=== PATIENT | female | born 1935 | race Caucasian/White ===

== ENCOUNTER 2020-10-11 18:10 | Inpatient (IN) | payer MEDICARE ==
[~2020-10-11] VITALS: Ht 162.6 cm; Wt 81.4 kg
[2020-10-11 21:29] VITALS: BP 117/70
[2020-10-11] MEDS ORDERED: GABA-586 PO (22:47)
[2020-10-11] MEDS ORDERED: TEMA15CA PO (22:47)
[2020-10-11] MEDS: TEMAZEPAM 7.5 MG CAPSULE PO SCH (23:57)
[2020-10-11] MEDS: GABAPENTIN 300 MG CAPSULE. PO SCH (23:57)
[2020-10-12] MEDS ORDERED: ONDA4TAB12 PO (01:26)
[2020-10-12] MEDS ORDERED: ASPI-630 PO (01:26)
[2020-10-12] MEDS ORDERED: ACET325T21 PO (01:26)
[2020-10-12] MEDS ORDERED: METO50TA4 PO (01:26)
[2020-10-12] MEDS ORDERED: POTA20TA4 PO (01:26)
[2020-10-12] MEDS ORDERED: ATOR40TA59 PO (01:26)
[2020-10-12] MEDS ORDERED: SERT50TA PO (01:26)
[2020-10-12] MEDS ORDERED: PANT40TA6 PO (01:26)
[2020-10-12] MEDS ORDERED: FURO40TA4 PO (01:26)
[2020-10-12] MEDS ORDERED: SUCR1TAB PO (01:26)
[2020-10-12] MEDS ORDERED: OLANZapine IM 10 MG VIAL. IM ONE (02:30)
[2020-10-12 06:03] VITALS: BP 93/69
[2020-10-12 06:57] LABS: BACTERIA,URINE 0 /HPF (0-FEW); BILIRUBIN,URINE NEG (NEG); CLARITY,URINE HAZY; COLOR,URINE YELLOW; GLUCOSE,URINE NEG (NEG); HYALINE CASTS, URINE FEW /HPF; NITRITE,URINE NEG (NEG); SQUAMOUS EPITHELIAL CELL,UR FEW /LPF; UROBILINOGEN,URINE 0.2 mg/dL (0.2 mg/dL); WBC,URINE 20-40 /HPF (0-4)
[2020-10-12 07:02] LABS: BASO % 1 % (0-3); EOS # 0.2 x10^3/uL (0.0-0.7); EOS % 2 % (0-3); HEMATOCRIT 40.9 % (36.0-47.0); HEMOGLOBIN 13.5 g/dL (12.0-15.5); LYMPH # 1.6 x10^3/uL (1.0-4.8); LYMPH % 18 % (24-48); MEAN CORPUSCULAR HEMOGLOBIN 32 pg (25-35); MEAN CORPUSCULAR HGB CONC 33 g/dL (31-37); MEAN CORPUSCULAR VOLUME 96 fL (79-100); MONO # 0.9 x10^3/uL (0.0-1.1); MONO % 10 % (0-9); NEUT # 6.3 x10^3uL (1.8-7.7); NEUT % 70 % (31-73); PLATELET COUNT 195 x10^3/uL (140-400); RED BLOOD COUNT 4.28 x10^6/uL (3.50-5.40); RED CELL DISTRIBUTION WIDTH 15.9 % (11.5-14.5); WHITE BLOOD COUNT 9.1 x10^3/uL (4.0-11.0)
[2020-10-12 07:07] LABS: ALBUMIN 3.6 g/dL (3.4-5.0); ALBUMIN/GLOBULIN RATIO 1.1 (1.0-1.7); CALCIUM 9.3 mg/dL (8.5-10.1); CREATININE 1.6 mg/dL (0.6-1.0); GFR 30.6; MAGNESIUM 1.9 mg/dL (1.8-2.4); POTASSIUM 3.4 mmol/L (3.5-5.1); TOTAL BILIRUBIN 1.2 mg/dL (0.2-1.0); TOTAL PROTEIN 6.9 g/dL (6.4-8.2)
[2020-10-12 14:59] LABS: THYROID STIM HORMONE (TSH) 1.17 uIU/mL (0.358-3.740)
[2020-10-12] MEDS ORDERED: ONDANSETRON ODT 4 MG TAB.RAPDIS PO PRN (17:45)
[2020-10-12] MEDS ORDERED: ACETAMINOPHEN 325 MG TABLET PO PRN (17:45)
--- NOTE | 2020-10-12 18:00 | PN ---
DATE: 10/12/2020 SUBJECTIVE: The patient is resting, slightly propped up in bed, in no apparent distress. She apparently has been extremely agitated, restless, wanting to go home. She is in fact refused to eat her breakfast and lunch and apparently threatening to eat her supper also. PHYSICAL EXAMINATION: GENERAL: When I examined her, she looked pale, not jaundiced or cyanosed. No lymphadenopathy, no thyromegaly. No jugular venous distension. No limb edema. VITAL SIGNS: Her heart rate was 105, blood pressure 93/69, temperature 97.5, respiratory rate 20, and oxygen saturation was 94%. HEAD, EYES, EARS, NOSE AND THROAT: Showed normocephalic, atraumatic. NECK: Supple. HEART: Showed normal first and second heart sounds. No gallop or murmur. CHEST: Clear to auscultation. No crepitation or rhonchi. ABDOMEN: Distended, soft, nontender. NEUROLOGIC: She is grossly intact. LABORATORY DATA: Well within normal limit. Her H and H was 13.5 and 40 with normal white cell count and platelets as well as her chemistry. Her coronavirus PCR is still pending at the time of this dictation. IMPRESSION: In summary, this is an 85-year-old female patient who apparently was at [facility] as she had a disagreement with her family and threatened suicidal ideation by taking an overdose of on herself. She is upset with doctors and bandaged her from her room, all this in a background of history of what seemed to be a major depressive disorder. She has multiple medical problems including chronic obstructive pulmonary disease, hypertension, chronic kidney disease, congestive heart failure. She has is known to have chronic atrial fibrillation for which she has a Watchman device. PLAN: My plan is to continue with all her medication and await and if coronavirus test by PCR is negative, she can be transferred to [facility] for inpatient psychiatric stabilization. LIZA ACOSTA MD DR: PACHECO/eliseo JOB#: [id number] / [id number]
--- NOTE | 2020-10-12 18:06 | HP ---
ADMIT DATE: 10/11/2020 HISTORY OF PRESENT ILLNESS: The patient is an 85-year-old female patient who transferred from [facility] to be admitted to [facility] for inpatient psychiatric stabilization. Apparently, the patient has disagreement with the family and threatened suicide by taking pills. Son was able to get most of the pelvis away, but unsure whether she ingested any hydrochlorothiazide, omeprazole. The patient denies complaints. While awaiting for [facility] bed, she was noted to have atrial fibrillation with RVR. IV Cardizem initiated and the patient was admitted to CCU. She apparently is known to have history of chronic atrial fibrillation and has a Watchman device. She was in sinus rhythm and taken off the drip and apparently had become very angry with the doctors and the CCU and managed them out of her room and therefore, it was felt that the patient would benefit from inpatient psychiatric stabilization. When I saw her, she was awake, alert, oriented x 2. She is ambulatory. Her concern is wanting to go home. PAST MEDICAL HISTORY: Significant for chronic diastolic congestive heart failure, acute on chronic kidney injury, anemia, atrial fibrillation, coronary artery disease, chronic back pain, COPD, hyperlipidemia, hypertension, mild recurrent major depression, mitral regurgitation, osteoarthritis, ovarian failure. She has a patent foramen ovale, postherpetic neuralgia, presence of Watchman left atrial appendage closure device and urinary frequency. PAST SURGICAL HISTORY: Significant for multiple echocardiograms and transesophageal echocardiograms, Watchman left atrial appendage occlusion. She has esophagogastroduodenoscopy and flexible sigmoidoscopy. She underwent elective cardioversion for arrhythmias. She underwent PCI with stent deployment to the left anterior descending artery, has had abdominal hysterectomy, bilateral cataract extraction. ALLERGIES: SHE IS ALLERGIC TO PENICILLIN AND SULFADIAZINE. MEDICATIONS: She is normally on following medications: She is on atorvastatin 40 mg once a day, metoprolol succinate 50 mg once a day, aspirin 81 mg once a day, acetaminophen 650 mg every 6 hours, gabapentin 300 mg at bedtime, sertraline 50 mg 1 tablet daily, temazepam 7.5 mg capsule at bedtime, potassium chloride 20 mEq daily, furosemide 40 mg daily, ondansetron 4 mg every 6 hours, sucralfate 1 gram 3 times a day with meals, and Protonix 40 mg twice a day. FAMILY HISTORY: Significant for heart disease in mother, father and sister. Myocardial infarction in the father. SOCIAL HISTORY: She worked in [employer]. Highest education level was high school. She lives with her children. She is a former smoker, quit more than 30 days ago. Does not drink alcohol or use any recreational drugs. PHYSICAL EXAMINATION: GENERAL: On examining her, she looked well and was clearly in no apparent respiratory distress. No pallor, jaundice, cyanosis or thyromegaly. No jugular venous distension. No lower limb edema. VITAL SIGNS: Her heart rate was 115, blood pressure was 117/70, temperature 97.8, respiratory rate 20, and oxygen saturation was 96% on room air. HEAD, EYES, EARS, NOSE AND THROAT: Showed normocephalic, atraumatic. NECK: Supple. HEART: Showed normal first and second heart sounds. No gallop, rub or murmur. CHEST: Clear to auscultation. No crepitation or rhonchi. ABDOMEN: Distended, soft, nontender. No guarding or rigidity. No organomegaly. All hernial orifice intact. Bowel sounds normal. NEUROLOGIC: She was awake, alert, oriented to time, place and person. All her cranial nerves intact. EXTREMITIES: She moves extremities without difficulty. She ambulates without assistance or assistive devices. LABORATORY DATA: Her lab work showed a white cell count of 9100, hemoglobin 13.5, hematocrit 40, MCV 96, and platelet count of 195,000. Her chemistry showed a serum sodium 144, potassium 3.4, chloride 104, bicarbonate 28, BUN 18, creatinine 1.6, estimated GFR was 30 mL per minute. Her glucose 111, calcium was 9.3, magnesium was 1.9. Total bilirubin, AST, ALT, alkaline phosphatase were normal. Total protein 6.9, albumin was 3.6. Serum triglycerides were 181, total cholesterol 183, LDL was 89, VLDL was 36, HDL was 58 and the ratio was 3. Her vitamin B12 was 271 pg/mL. 25-hydroxy vitamin D was 62.7 and her TSH was 1.170. Her D-dimer was 0.9. Urinalysis essentially unremarkable and her antitreponemal and pallidum antibodies were nonreactive. ASSESSMENT AND PLAN: In summary, this is an 85-year-old female patient who basically has disagreement with the family and threatened suicidal ideation by taking an overdose of pills, upset with the doctors and banished them her from her room while at [facility]. She was admitted to [address] [place] [address] to be screened for COVID-19 and once it is negative, the patient will be transferred to [facility] for inpatient psychiatric stabilization. LIZA ACOSTA MD DR: PACHECO/eliseo JOB#: [id number] / [id number]
[2020-10-12 19:05] VITALS: BP 129/80
[2020-10-12] MEDS: TEMAZEPAM 7.5 MG CAPSULE PO SCH (21:47)
[2020-10-12] MEDS: PANTOPRAZOLE 40 MG TABLET. PO SCH (21:47)
[2020-10-12] MEDS: GABAPENTIN 300 MG CAPSULE. PO SCH (21:47)
[2020-10-13 01:07] LABS: HEMOGLOBIN A1C 5.9 % (4.8-5.6)
[2020-10-13 05:40] VITALS: BP 103/66
[2020-10-13 06:39] VITALS: BP 116/84
[2020-10-13] MEDS ORDERED: SUCRALFATE 1 GM TABLET. PO SCH (07:30)
[2020-10-13] MEDS: PANTOPRAZOLE 40 MG TABLET. PO SCH (07:43)
[2020-10-13] MEDS ORDERED: ATORVASTATIN CALCIUM 20 MG TABLET PO SCH (09:00)
[2020-10-13] MEDS ORDERED: POTASSIUM CHLORIDE 20 MEQ TABLET.ER. PO SCH (09:00)
[2020-10-13] MEDS ORDERED: METOPROLOL SUCC 24HR ER 50 MG TAB.ER.24H. PO SCH (09:00)
[2020-10-13] MEDS ORDERED: ASPIRIN CHEWABLE 81 MG TABLET. PO SCH (09:00)
[2020-10-13] MEDS ORDERED: FUROSEMIDE 40 MG TABLET PO SCH (09:00)
[2020-10-13] MEDS ORDERED: SERTRALINE 50 MG TABLET. PO SCH (09:00)
[2020-10-13 11:19] VITALS: BP 118/80
--- NOTE | 2020-10-13 13:13 | DS ---
DATE OF DISCHARGE: 10/13/2020 ATTENDING PHYSICIAN: Dr. Jamison FINAL DISCHARGE DIAGNOSES: 1. Behavioral issues and suicidal ideation. 2. Paroxysmal atrial fibrillation. 3. Previous Watchman device. 4. Chronic obstructive pulmonary disease, mild. 5. Essential hypertension. 6. Mild dementia. 7. Hyperlipidemia. 8. Chronic low back pain. 9. Patent foramen ovale. 10. Postherpetic neuralgia. HISTORY AND PHYSICAL: This is an 85-year-old female who has been living at home. She had gotten disgruntled and threatened suicide ideation without any active plans. She was sent here from [facility]. PHYSICAL EXAMINATION: Please see the dictated note. PERTINENT LABORATORY AND X-RAY STUDIES: Admission hemoglobin was 13.5 g/dL, white count of 9100. Sodium 144, potassium 3.4 mEq. Hemoglobin A1c 5.9, creatinine 1.6 mg percent. Serology: The coronavirus is pending. She has no symptoms. COURSE IN THE HOSPITAL: She was admitted. Home meds were restarted. Diet was advanced. When the coronavirus swab was available, she was transferred. Discharged to [facility] at the screening process. Her home meds include the following: They will continue her Tylenol, aspirin, Lasix, Neurontin, metoprolol, ondansetron, Protonix, potassium, Zoloft, Carafate, and Restoril dose unchanged. She is a full code. She was discharged then from our smalls to the [facility] in stable condition with explicit instructions and followup care. JANKI NEIL MD DR: COURTNEY/eliseo JOB#: [id number] / [id number] [address]
[2020-10-13 15:17] VITALS: BP 137/85
[2020-10-13] MEDS ORDERED: METO-239 PO (18:14)
[2020-10-13] MEDS ORDERED: TEMA7.5C PO (18:14)
--- NOTE | 2020-10-14 07:00 | EKG ---
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
== END 2020-10-13 15:31 | DRG 641 ==
LOC: 1 SOUTH 18:10
PROVIDERS: ADMIT Internal Medicine; ATTEND Internal Medicine
DX: E87.6 Hypokalemia (principal); R45.851 Suicidal ideations; I50.32 Chronic diastolic (congestive) heart failure; B02.29 Other postherpetic nervous system involvement; F03.91 Unspecified dementia, unspecified severity, with behavioral disturbance; I13.0 Hypertensive heart and chronic kidney disease with heart failure and stage 1 through stage 4 chronic kidney disease, or unspecified chronic kidney disease; I48.20 Chronic atrial fibrillation, unspecified; Q21.1 Atrial septal defect; E78.5 Hyperlipidemia, unspecified; G89.29 Other chronic pain; I25.10 Atherosclerotic heart disease of native coronary artery without angina pectoris; I34.0 Nonrheumatic mitral (valve) insufficiency; I48.0 Paroxysmal atrial fibrillation; J44.9 Chronic obstructive pulmonary disease, unspecified; N18.9 Chronic kidney disease, unspecified; Z82.49 Family history of ischemic heart disease and other diseases of the circulatory system; Z87.891 Personal history of nicotine dependence; Z90.710 Acquired absence of both cervix and uterus; Z95.5 Presence of coronary angioplasty implant and graft; Z95.818 Presence of other cardiac implants and grafts; Z98.41 Cataract extraction status, right eye; Z98.42 Cataract extraction status, left eye; Z88.0 Allergy status to penicillin; Z88.8 Allergy status to other drugs, medicaments and biological substances; Z20.822 Contact with and (suspected) exposure to COVID-19
CPT/HCPCS: 36415; 80053; 80061; 81001; 82306; 82607; 83036; 83735; 84443; 85025; 85379; 86592; 87086; 93005; J3490; U0003

== ENCOUNTER 2020-10-13 15:30 | Inpatient (IN) | payer MEDICARE ==
[~2020-10-13] VITALS: Ht 144.8 cm; Wt 82.5 kg
[~2020-10-13 15:30] MED LIST: ACET325T21 PO; ASPI-630 PO; ATOR40TA59 PO; FURO40TA4 PO; GABA-586 PO; METO50TA4 PO; ONDA4TAB12 PO; PANT40TA6 PO; POTA20TA4 PO; SERT50TA PO; SUCR1TAB PO; TEMA15CA PO
[2020-10-13 17:12] VITALS: BP 137/81
[2020-10-13] MEDS ORDERED: METHYL SALICYLATE/MENTHOL TOPICAL OINTMENT 57GM TUBE. TP PRN (17:45)
[2020-10-13] MEDS ORDERED: MAGNESIUM HYDROXIDE 2,400 MG/30 ML ORAL.SUSP. PO PRN (17:45)
[2020-10-13] MEDS ORDERED: MAG HYDROX/AL HYDROX/SIMETH 30 ML ORAL.SUSP PO PRN (17:45)
[2020-10-13] MEDS ORDERED: ACETAMINOPHEN 325 MG TABLET PO PRN (18:00)
[2020-10-13] MEDS ORDERED: ONDANSETRON ODT 4 MG TAB.RAPDIS PO PRN (18:00)
[2020-10-13] MEDS ORDERED: TEMA7.5C PO (18:14)
[2020-10-13] MEDS ORDERED: METO-239 PO (18:14)
[2020-10-13] MEDS: GABAPENTIN 300 MG CAPSULE. PO SCH (19:40)
[2020-10-13] MEDS: TEMAZEPAM 7.5 MG CAPSULE PO SCH (19:40)
[2020-10-13] MEDS: PANTOPRAZOLE 40 MG TABLET. PO SCH (19:41)
--- NOTE | 2020-10-13 21:09 | PDOC ---
Exam Note: Karl Note: Please also refer to the separate dictated note~for this date of service dictated separately.~Patient seen individually. Discussed the patient with Nursing staff reviewed the chart.~Reviewed interim history and current functioning. Reviewed vital signs,~Labs/ Radiology~and current medications noted below. Continue current treatment with the changes noted in the dictated addendum note Assessment: Vital Signs/I&O: Vital Signs Date Time Temp Pulse Resp B/P (MAP) Pulse Ox O2 Delivery O2 Flow Rate FiO2 10/13/20 17:12 98.4 89 18 137/81 (99) 93 Current Medications: Meds: Current Medications Medications (Trade) Dose Ordered Sig/Estefany Route PRN Reason Start Time Stop Time Status Last Admin Dose Admin Gabapentin (Neurontin) 300 mg HS PO 10/13/20 21:00 10/13/20 19:40 Pantoprazole Sodium (Protonix) 40 mg BID PO 10/13/20 21:00 10/13/20 19:41 Temazepam (Restoril) 7.5 mg QHS PO 10/13/20 21:00 10/13/20 19:40 I have reviewed the current psychotropics carefully including drug interactions. Risk benefit ratio favors no change other than as noted in my dictated progress note. Diagnosis: Problems: (1) Major depressive disorder, recurrent episode SAYRA SALGADO MD Oct 13, 2020 21:09
[2020-10-14 05:42] VITALS: BP 145/72
[2020-10-14 05:56] VITALS: BP_SYST 105; BP_SYST 109; BP_DIAS 62; BP_DIAS 64
[2020-10-14 06:55] LABS: ALBUMIN 3.6 g/dL (3.4-5.0); ALBUMIN/GLOBULIN RATIO 1.1 (1.0-1.7); CALCIUM 8.9 mg/dL (8.5-10.1); CREATININE 1.4 mg/dL (0.6-1.0); GFR 35.7; POTASSIUM 3.4 mmol/L (3.5-5.1)
[2020-10-14 07:27] LABS: BASO # 0.1 x10^3/uL (0.0-0.2); BASO % 1 % (0-3); EOS # 0.3 x10^3/uL (0.0-0.7); EOS % 4 % (0-3); HEMATOCRIT 43.9 % (36.0-47.0); HEMOGLOBIN 14.3 g/dL (12.0-15.5); LYMPH # 2.5 x10^3/uL (1.0-4.8); LYMPH % 35 % (24-48); MEAN CORPUSCULAR HEMOGLOBIN 31 pg (25-35); MEAN CORPUSCULAR HGB CONC 33 g/dL (31-37); MEAN CORPUSCULAR VOLUME 96 fL (79-100); MONO # 0.8 x10^3/uL (0.0-1.1); MONO % 11 % (0-9); NEUT # 3.4 x10^3uL (1.8-7.7); NEUT % 49 % (31-73); PLATELET COUNT 229 x10^3/uL (140-400); RED BLOOD COUNT 4.58 x10^6/uL (3.50-5.40); WHITE BLOOD COUNT 6.9 x10^3/uL (4.0-11.0)
[2020-10-14] MEDS: SUCRALFATE 1 GM TABLET. PO SCH ×3 (08:12→17:29)
[2020-10-14] MEDS: ASPIRIN CHEWABLE 81 MG TABLET. PO SCH (08:12)
[2020-10-14] MEDS: FUROSEMIDE 40 MG TABLET PO SCH (08:12)
[2020-10-14] MEDS: METOPROLOL SUCC 24HR ER 25 MG TAB.ER.24H. PO SCH (08:13)
[2020-10-14] MEDS: PANTOPRAZOLE 40 MG TABLET. PO SCH ×2 (08:13→19:29)
[2020-10-14] MEDS: ATORVASTATIN CALCIUM 20 MG TABLET PO SCH (08:14)
[2020-10-14] MEDS: POTASSIUM CHLORIDE 20 MEQ TABLET.ER. PO SCH (08:14)
[2020-10-14] MEDS ORDERED: SERTRALINE 50 MG TABLET. PO SCH (09:00)
[2020-10-14 17:22] VITALS: BP 149/83
[2020-10-14] MEDS: TEMAZEPAM 7.5 MG CAPSULE PO SCH (19:29)
[2020-10-14] MEDS: GABAPENTIN 300 MG CAPSULE. PO SCH (19:29)
--- NOTE | 2020-10-14 20:56 | PDOC ---
Exam Note: Karl Note: Please also refer to the separate dictated note~for this date of service dictated separately.~Patient seen individually. Discussed the patient with Nursing staff reviewed the chart.~Reviewed interim history and current functioning. Reviewed vital signs,~Labs/ Radiology~and current medications noted below. Continue current treatment with the changes noted in the dictated addendum note Assessment: Vital Signs/I&O: Vital Signs Date Time Temp Pulse Resp B/P (MAP) Pulse Ox O2 Delivery O2 Flow Rate FiO2 10/14/20 17:22 97.5 92 18 149/83 (105) 95 I & O 10/13/20 10/13/20 10/14/20 15:00 23:00 07:00 Intake Total 600 ml Balance 600 ml Labs: Laboratory Tests Test 10/14/20 06:11 White Blood Count 6.9 x10^3/uL (4.0-11.0) Red Blood Count 4.58 x10^6/uL (3.50-5.40) Hemoglobin 14.3 g/dL (12.0-15.5) Hematocrit 43.9 % (36.0-47.0) Mean Corpuscular Volume 96 fL (79-100) Mean Corpuscular Hemoglobin 31 pg (25-35) Mean Corpuscular Hemoglobin Concent 33 g/dL (31-37) Red Cell Distribution Width 16.0 % (11.5-14.5) H Platelet Count 229 x10^3/uL (140-400) Neutrophils (%) (Auto) 49 % (31-73) Lymphocytes (%) (Auto) 35 % (24-48) Monocytes (%) (Auto) 11 % (0-9) H Eosinophils (%) (Auto) 4 % (0-3) H Basophils (%) (Auto) 1 % (0-3) Neutrophils # (Auto) 3.4 x10^3uL (1.8-7.7) Lymphocytes # (Auto) 2.5 x10^3/uL (1.0-4.8) Monocytes # (Auto) 0.8 x10^3/uL (0.0-1.1) Eosinophils # (Auto) 0.3 x10^3/uL (0.0-0.7) Basophils # (Auto) 0.1 x10^3/uL (0.0-0.2) Sodium Level 146 mmol/L (136-145) H Potassium Level 3.4 mmol/L (3.5-5.1) L Chloride Level 105 mmol/L (98-107) Carbon Dioxide Level 29 mmol/L (21-32) Anion Gap 12 (6-14) Blood Urea Nitrogen 19 mg/dL (7-20) Creatinine 1.4 mg/dL (0.6-1.0) H Estimated GFR (Cockcroft-Gault) 35.7 BUN/Creatinine Ratio 14 (6-20) Glucose Level 107 mg/dL (70-99) H Calcium Level 8.9 mg/dL (8.5-10.1) Magnesium Level 1.9 mg/dL (1.8-2.4) Total Bilirubin 1.0 mg/dL (0.2-1.0) Aspartate Amino Transferase (AST) 17 U/L (15-37) Alanine Aminotransferase (ALT) 19 U/L (14-59) Alkaline Phosphatase 112 U/L (46-116) Total Protein 7.0 g/dL (6.4-8.2) Albumin 3.6 g/dL (3.4-5.0) Albumin/Globulin Ratio 1.1 (1.0-1.7) Current Medications: Meds: Current Medications Medications (Trade) Dose Ordered Sig/Estefany Route PRN Reason Start Time Stop Time Status Last Admin Dose Admin Aspirin (Aspirin Chewable) 81 mg DAILY PO 10/14/20 09:00 10/14/20 08:12 Furosemide (Lasix) 40 mg DAILY PO 10/14/20 09:00 10/14/20 08:12 Gabapentin (Neurontin) 300 mg HS PO 10/13/20 21:00 10/14/20 19:29 Metoprolol Succinate (Toprol Xl) 75 mg DAILY PO 10/14/20 09:00 10/14/20 08:13 Pantoprazole Sodium (Protonix) 40 mg BID PO 10/13/20 21:00 10/14/20 19:29 Potassium Chloride (Klor-Con) 20 meq DAILY PO 10/14/20 09:00 10/14/20 08:14 Sertraline HCl (Zoloft) 50 mg DAILY PO 10/14/20 09:00 10/14/20 10:47 DC 10/14/20 08:14 Sucralfate (Carafate) 1 gm TIDBFRMEAL PO 10/14/20 07:30 10/14/20 17:29 Temazepam (Restoril) 7.5 mg QHS PO 10/13/20 21:00 10/14/20 19:29 Atorvastatin Calcium (Lipitor) 40 mg DAILY PO 10/14/20 09:00 10/14/20 08:14 I have reviewed the current psychotropics carefully including drug interactions. Risk benefit ratio favors no change other than as noted in my dictated progress note. Diagnosis: Problems: (1) Major depressive disorder, recurrent episode SAYRA SALGADO MD Oct 14, 2020 20:56
--- NOTE | 2020-10-14 22:07 | HP ---
ADMIT DATE: 10/13/2020 PSYCHIATRIC ADMISSION HISTORY/EVALUATION This late entry date of service 10/13/2020 covers elements not covered in my initial note. SUBJECTIVE: I met with the patient evening of 10/13/2020. Previously discussed with social service and intake staff members and nursing staff on . I had been called from the medical/surgical floor on when the patient was admitted there and attempted to elope around 1:30 in the morning. We had initiated Zyprexa Zydis at that time p.r.n. and she was more manageable. IDENTIFYING DATA: The patient is an 85-year-old female referred from [facility] where she presented from home as an emergency, status post threats to overdose and commit suicide because she was having disagreements with her daughter. She was extremely erratic in her mood, depressed, anxious, paranoid, had failed outpatient psychiatric interventions. While at [facility], she continued to be paranoid, had "banished her doctors from her room." The patient's behaviors have been deemed dangerous, unmanageable. She has failed outpatient psychiatric interventions resulting in this referral. CHIEF COMPLAINT: "I did not do that. 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 She lives with her son in [place], [place] and her daughter is her power of community coordinator. She becomes upset at the family, threatened to overdose on medications; had been depressed, anxious and failed outpatient psychiatric interventions. No clear history of bipolar disorder. PAST PSYCHIATRIC HISTORY: As above. MEDICAL HISTORY: Positive for congestive heart failure, acute on chronic kidney injury, anemia, atrial fibrillation, history of RVR, coronary artery disease, chronic back pain, COPD, GI bleed, hiatal hernia, hyperlipidemia, hypertension, mitral regurgitation, osteoarthritis, edema, patent foramen ovale, postherpetic neuralgia, syncope, diverticulosis. ACCU-CHEKS: Negative. DIET: Cardiac. Takes medications whole, ambulates independently. CURRENT PSYCHOTROPICS: Zoloft 75 mg a day, Restoril 7.5 mg at bedtime p.r.n., gabapentin 300 mg at bedtime. FAMILY HISTORY: Noncontributory. SOCIAL HISTORY: No history of alcohol, drug abuse, physical, sexual or elder abuse. She is not known to be a perpetrator. REACTION TO HOSPITALIZATION: The patient is not fully accepting it. ASSETS: Supportive family, reasonably cognitively intact. REVIEW OF SYSTEMS: No CV, , pulmonary, eye, ENT system symptoms on review. MENTAL STATUS EXAMINATION: The patient was seen individually evening of 10/13/2020. She is oriented to herself and situation. Speech is coherent, rapid. Abstraction fair, computation impaired, language function intact, attention span short. Mood and affect, anxious, labile. She denied active suicidal ideation. LABORATORY DATA: Reviewed. IMPRESSION: Major depressive disorder, recurrent; anxiety disorder, unspecified; impulse control disorder, unspecified. Rest diagnoses as above. PLAN: Admit to Geropsychiatry Unit at [facility]. I will see the patient daily individually from a psychiatric standpoint. Medical followup per Dr. Jamison/Dr. Obrien. We will consider increasing the Zoloft as an antidepressant using low dose Seroquel to augment Zoloft as a mood stabilizer. We will make further adjustments post baseline assessment. ESTIMATED LENGTH OF STAY: 10-12 days. DISPOSITION: Plans back home with outpatient followup at the [facility]. SAYRA SALGADO MD DR: AMISHA/eliseo JOB#: [id number] / [id number]
--- NOTE | 2020-10-14 22:09 | PN ---
DATE: 10/14/2020 PSYCHIATRIC PROGRESS NOTE This note covers the elements not covered in my initial note of 10/14/2020. SUBJECTIVE: The patient was staffed at a treatment team meeting with the entire team with Larissa Funez, outreach and education social worker, Mary, outreach and education social worker, Marina and __, activity therapy and NELLIE Duarte. The patient has been pleasant, compliant, remains anxious. I met with her in the evening. She is obsessed about discharge and we had a lengthy discussion about the symptoms prompting admission, all of which she denied. REVIEW OF SYSTEMS: No CV, , pulmonary, eye, ENT system symptoms on review. MENTAL STATUS EXAM: Reasonably oriented. Speech is coherent, rapid at times. Abstraction fair, computation impaired, language function intact. Mood and affect remains depressed. LABORATORY DATA: Reviewed. IMPRESSION: Major depressive disorder, rule out psychotic features; anxiety disorder, unspecified; impulse control disorder, unspecified. PLAN: Continue current psychotropics. Increase Zoloft from 50 mg a day to 75 mg a day. Maintain Restoril and gabapentin. Adjust further as clinically indicated. Consider Seroquel for augmentation. SAYRA SALGADO MD DR: AMISHA/eliseo JOB#: [id number] / [id number]
[2020-10-15 05:51] VITALS: BP 124/81
[2020-10-15] MEDS: PANTOPRAZOLE 40 MG TABLET. PO SCH ×2 (08:30→20:54)
[2020-10-15] MEDS: ASPIRIN CHEWABLE 81 MG TABLET. PO SCH (08:31)
[2020-10-15] MEDS: ATORVASTATIN CALCIUM 20 MG TABLET PO SCH (08:31)
[2020-10-15] MEDS: SERTRALINE 50 MG TABLET. PO SCH (08:31)
[2020-10-15] MEDS: METOPROLOL SUCC 24HR ER 25 MG TAB.ER.24H. PO SCH (08:31)
[2020-10-15] MEDS: SUCRALFATE 1 GM TABLET. PO SCH ×3 (08:32→17:16)
[2020-10-15] MEDS: POTASSIUM CHLORIDE 20 MEQ TABLET.ER. PO SCH (08:32)
[2020-10-15] MEDS: FUROSEMIDE 40 MG TABLET PO SCH (08:32)
[2020-10-15 16:02] VITALS: BP 109/73
--- NOTE | 2020-10-15 20:42 | PDOC ---
Exam Note: Karl Note: Please also refer to the separate dictated note~for this date of service dictated separately.~Patient seen individually. Discussed the patient with Nursing staff reviewed the chart.~Reviewed interim history and current functioning. Reviewed vital signs,~Labs/ Radiology~and current medications noted below. Continue current treatment with the changes noted in the dictated addendum note Assessment: Vital Signs/I&O: Vital Signs Date Time Temp Pulse Resp B/P (MAP) Pulse Ox O2 Delivery O2 Flow Rate FiO2 10/15/20 16:02 97.5 94 18 109/73 (85) 98 Room Air I & O 10/14/20 10/14/20 10/15/20 15:00 23:00 07:00 Intake Total 400 ml 320 ml Balance 400 ml 320 ml Current Medications: Meds: Current Medications Medications (Trade) Dose Ordered Sig/Estefany Route PRN Reason Start Time Stop Time Status Last Admin Dose Admin Sertraline HCl (Zoloft) 75 mg DAILY PO 10/15/20 09:00 10/15/20 08:31 I have reviewed the current psychotropics carefully including drug interactions. Risk benefit ratio favors no change other than as noted in my dictated progress note. Diagnosis: Problems: (1) Major depressive disorder, recurrent episode (2) Anxiety disorder, unspecified (3) Impulse control disorder, unspecified SAYRA SALGADO MD Oct 15, 2020 20:42
[2020-10-15] MEDS: TEMAZEPAM 7.5 MG CAPSULE PO SCH (20:52)
[2020-10-15] MEDS: GABAPENTIN 300 MG CAPSULE. PO SCH (20:55)
[2020-10-16 06:15] VITALS: BP 113/81
[2020-10-16] MEDS: ASPIRIN CHEWABLE 81 MG TABLET. PO SCH (08:31)
[2020-10-16] MEDS: METOPROLOL SUCC 24HR ER 25 MG TAB.ER.24H. PO SCH (08:31)
[2020-10-16] MEDS: SERTRALINE 50 MG TABLET. PO SCH (08:32)
[2020-10-16] MEDS: POTASSIUM CHLORIDE 20 MEQ TABLET.ER. PO SCH (08:32)
[2020-10-16] MEDS: ATORVASTATIN CALCIUM 20 MG TABLET PO SCH (08:32)
[2020-10-16] MEDS: ACETAMINOPHEN 325 MG TABLET PO PRN (08:32)
[2020-10-16] MEDS: PANTOPRAZOLE 40 MG TABLET. PO SCH ×2 (08:32→19:25)
[2020-10-16] MEDS: SUCRALFATE 1 GM TABLET. PO SCH ×3 (08:32→17:00)
[2020-10-16] MEDS: FUROSEMIDE 40 MG TABLET PO SCH (08:33)
[2020-10-16 16:10] VITALS: BP 121/75
[2020-10-16] MEDS: TEMAZEPAM 7.5 MG CAPSULE PO SCH (19:25)
[2020-10-16] MEDS: GABAPENTIN 300 MG CAPSULE. PO SCH (19:25)
--- NOTE | 2020-10-16 21:22 | PDOC ---
Exam Note: Karl Note: Please also refer to the separate dictated note~for this date of service dictated separately.~Patient seen individually. Discussed the patient with Nursing staff reviewed the chart.~Reviewed interim history and current functioning. Reviewed vital signs,~Labs/ Radiology~and current medications noted below. Continue current treatment with the changes noted in the dictated addendum note Assessment: Vital Signs/I&O: Vital Signs Date Time Temp Pulse Resp B/P (MAP) Pulse Ox O2 Delivery O2 Flow Rate FiO2 10/16/20 16:10 97.2 72 20 121/75 (90) 97 10/16/20 06:15 Room Air I & O 10/15/20 10/15/20 10/16/20 15:00 23:00 07:00 Intake Total 600 ml 600 ml Balance 600 ml 600 ml Current Medications: Meds: Current Medications Medications (Trade) Dose Ordered Sig/Estefany Route PRN Reason Start Time Stop Time Status Last Admin Dose Admin Acetaminophen (Tylenol) 650 mg PRN Q6HRS PRN PO MILD PAIN / TEMP > 100.3'F 10/13/20 17:45 10/16/20 08:32 Multi-Ingredient Ointment (Analgesic [place]) 1 lili PRN QID PRN TP MUSCLE PAIN 10/13/20 17:45 Al Hydroxide/Mg Hydroxide (Mylanta Plus Xs) 15 ml PRN AFTMEALHC PRN PO DYSPEPSIA 10/13/20 17:45 Magnesium Hydroxide (Milk Of Magnesia) 2,400 mg PRN QHS PRN PO CONSTIPATION 10/13/20 17:45 Acetaminophen (Tylenol) 650 mg PRN Q6HRS PRN PO pain or fever 10/13/20 18:00 UNV Aspirin (Aspirin Chewable) 81 mg DAILY PO 10/14/20 09:00 10/16/20 08:31 Furosemide (Lasix) 40 mg DAILY PO 10/14/20 09:00 10/16/20 08:33 Gabapentin (Neurontin) 300 mg HS PO 10/13/20 21:00 10/16/20 19:25 Metoprolol Succinate (Toprol Xl) 75 mg DAILY PO 10/14/20 09:00 10/16/20 08:31 Ondansetron HCl (Zofran Odt) 4 mg PRN Q6HRS PRN PO NAUSEA/VOMITING 10/13/20 18:00 Pantoprazole Sodium (Protonix) 40 mg BID PO 10/13/20 21:00 10/16/20 19:25 Potassium Chloride (Klor-Con) 20 meq DAILY PO 10/14/20 09:00 10/16/20 08:32 Sertraline HCl (Zoloft) 50 mg DAILY PO 10/14/20 09:00 10/14/20 10:47 DC 10/14/20 08:14 Sucralfate (Carafate) 1 gm TIDBFRMEAL PO 10/14/20 07:30 10/16/20 17:00 Temazepam (Restoril) 7.5 mg QHS PO 10/13/20 21:00 10/16/20 19:25 Atorvastatin Calcium (Lipitor) 40 mg DAILY PO 10/14/20 09:00 10/16/20 08:32 Sertraline HCl (Zoloft) 75 mg DAILY PO 10/15/20 09:00 10/16/20 08:32 I have reviewed the current psychotropics carefully including drug interactions. Risk benefit ratio favors no change other than as noted in my dictated progress note. Diagnosis: Problems: (1) Major depressive disorder, recurrent episode (2) Impulse control disorder, unspecified (3) Anxiety disorder, unspecified SAYRA SALGADO MD Oct 16, 2020 21:21
[2020-10-17 06:20] VITALS: BP 122/75
--- NOTE | 2020-10-17 07:27 | PDOC ---
Exam Note: Karl Note: This note is a late entry for 10/15/2020 covers elements not covered in my initial note. Subjective: The patient was seen individually in the evening of 10/15/2020 with Gerald BALLARD, discussed and reviewed the chart. She slept 7 hours previous night. She has had no p.r.n.s. for behaviors. She has been obsessed about discharge. She is anxious, hyperverbal. Review of Systems: No CV, , eye, ENT system symptoms on review. Mental Status Exam: The patient is oriented to herself and situation. Speech is coherent, rapid at times. Abstraction is fair. Computation is somewhat impaired. Language function is intact. Mood and affect quite labile. No suicidal or homicidal ideation. Laboratory Data: Reviewed. 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 Anxiety disorder unspecified. Impulse control disorder unspecified. Plan: Continue current psychotropics. Adjust Zoloft as clinically indicated. Consider augmentation with Seroquel as a mood stabilizer if needed. Assessment: Vital Signs/I&O: Vital Signs Date Time Temp Pulse Resp B/P (MAP) Pulse Ox O2 Delivery O2 Flow Rate FiO2 10/17/20 06:20 97.9 69 16 122/75 (91) 98 Room Air I & O 10/16/20 10/16/20 10/17/20 15:00 23:00 07:00 Intake Total 840 ml 600 ml Balance 840 ml 600 ml Current Medications: Meds: Current Medications Medications (Trade) Dose Ordered Sig/Estefany Route PRN Reason Start Time Stop Time Status Last Admin Dose Admin Acetaminophen (Tylenol) 650 mg PRN Q6HRS PRN PO MILD PAIN / TEMP > 100.3'F 10/13/20 17:45 10/16/20 08:32 Multi-Ingredient Ointment (Analgesic [place]) 1 lili PRN QID PRN TP MUSCLE PAIN 10/13/20 17:45 Al Hydroxide/Mg Hydroxide (Mylanta Plus Xs) 15 ml PRN AFTMEALHC PRN PO DYSPEPSIA 10/13/20 17:45 Magnesium Hydroxide (Milk Of Magnesia) 2,400 mg PRN QHS PRN PO CONSTIPATION 10/13/20 17:45 Acetaminophen (Tylenol) 650 mg PRN Q6HRS PRN PO pain or fever 10/13/20 18:00 UNV Aspirin (Aspirin Chewable) 81 mg DAILY PO 10/14/20 09:00 10/16/20 08:31 Furosemide (Lasix) 40 mg DAILY PO 10/14/20 09:00 10/16/20 08:33 Gabapentin (Neurontin) 300 mg HS PO 10/13/20 21:00 10/16/20 19:25 Metoprolol Succinate (Toprol Xl) 75 mg DAILY PO 10/14/20 09:00 10/16/20 08:31 Ondansetron HCl (Zofran Odt) 4 mg PRN Q6HRS PRN PO NAUSEA/VOMITING 10/13/20 18:00 Pantoprazole Sodium (Protonix) 40 mg BID PO 10/13/20 21:00 10/16/20 19:25 Potassium Chloride (Klor-Con) 20 meq DAILY PO 10/14/20 09:00 10/16/20 08:32 Sertraline HCl (Zoloft) 50 mg DAILY PO 10/14/20 09:00 10/14/20 10:47 DC 10/14/20 08:14 Sucralfate (Carafate) 1 gm TIDBFRMEAL PO 10/14/20 07:30 10/16/20 17:00 Temazepam (Restoril) 7.5 mg QHS PO 10/13/20 21:00 10/16/20 19:25 Atorvastatin Calcium (Lipitor) 40 mg DAILY PO 10/14/20 09:00 10/16/20 08:32 Sertraline HCl (Zoloft) 75 mg DAILY PO 10/15/20 09:00 10/16/20 08:32 I have reviewed the current psychotropics carefully including drug interactions. Risk benefit ratio favors no change other than as noted in my dictated progress note. Diagnosis: Problems: (1) Major depressive disorder, recurrent episode (2) Impulse control disorder, unspecified (3) Anxiety disorder, unspecified SAYRA ASLGADO MD Oct 17, 2020 07:27
--- NOTE | 2020-10-17 07:51 | PDOC ---
Exam Note: Karl Note: This note is a late entry for 10/16/2020 covers elements not covered in my initial note. Subjective: The patient was seen individually in the evening of 10/16/2020 with Gallito BALLARD, discussed and reviewed the chart. She slept 7-3/4 hours previous night. She has been somewhat forgetful. Denies suicidal ideation, obsessed about wanting her fan switched off in the room. Nursing staff are addressing this. She is overall doing better. Review of Systems: No CV, , eye, ENT system symptoms on review. Mental Status Exam: The patient is oriented to herself and situation. She was slightly less hyperverbal today as I met with her, trying to convince me that she should be discharged this evening. I addressed this with her at length. Abstraction is fair. Computation is somewhat impaired. Language function is intact. Mood and affect quite labile. No suicidal or homicidal ideation. Laboratory Data: Reviewed. 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 Anxiety disorder unspecified. Impulse control disorder unspecified. Plan: Continue current psychotropics. Assessment: Vital Signs/I&O: Vital Signs Date Time Temp Pulse Resp B/P (MAP) Pulse Ox O2 Delivery O2 Flow Rate FiO2 10/17/20 06:20 97.9 69 16 122/75 (91) 98 Room Air I & O 10/16/20 10/16/20 10/17/20 15:00 23:00 07:00 Intake Total 840 ml 600 ml Balance 840 ml 600 ml Current Medications: Meds: Current Medications Medications (Trade) Dose Ordered Sig/Estefany Route PRN Reason Start Time Stop Time Status Last Admin Dose Admin Acetaminophen (Tylenol) 650 mg PRN Q6HRS PRN PO MILD PAIN / TEMP > 100.3'F 10/13/20 17:45 10/16/20 08:32 Multi-Ingredient Ointment (Analgesic [place]) 1 lili PRN QID PRN TP MUSCLE PAIN 10/13/20 17:45 Al Hydroxide/Mg Hydroxide (Mylanta Plus Xs) 15 ml PRN AFTMEALHC PRN PO DYSPEPSIA 10/13/20 17:45 Magnesium Hydroxide (Milk Of Magnesia) 2,400 mg PRN QHS PRN PO CONSTIPATION 10/13/20 17:45 Acetaminophen (Tylenol) 650 mg PRN Q6HRS PRN PO pain or fever 10/13/20 18:00 UNV Aspirin (Aspirin Chewable) 81 mg DAILY PO 10/14/20 09:00 10/16/20 08:31 Furosemide (Lasix) 40 mg DAILY PO 10/14/20 09:00 10/16/20 08:33 Gabapentin (Neurontin) 300 mg HS PO 10/13/20 21:00 10/16/20 19:25 Metoprolol Succinate (Toprol Xl) 75 mg DAILY PO 10/14/20 09:00 10/16/20 08:31 Ondansetron HCl (Zofran Odt) 4 mg PRN Q6HRS PRN PO NAUSEA/VOMITING 10/13/20 18:00 Pantoprazole Sodium (Protonix) 40 mg BID PO 10/13/20 21:00 10/16/20 19:25 Potassium Chloride (Klor-Con) 20 meq DAILY PO 10/14/20 09:00 10/16/20 08:32 Sertraline HCl (Zoloft) 50 mg DAILY PO 10/14/20 09:00 10/14/20 10:47 DC 10/14/20 08:14 Sucralfate (Carafate) 1 gm TIDBFRMEAL PO 10/14/20 07:30 10/16/20 17:00 Temazepam (Restoril) 7.5 mg QHS PO 10/13/20 21:00 10/16/20 19:25 Atorvastatin Calcium (Lipitor) 40 mg DAILY PO 10/14/20 09:00 10/16/20 08:32 Sertraline HCl (Zoloft) 75 mg DAILY PO 10/15/20 09:00 10/16/20 08:32 I have reviewed the current psychotropics carefully including drug interactions. Risk benefit ratio favors no change other than as noted in my dictated progress note. Diagnosis: Problems: (1) Major depressive disorder, recurrent episode (2) Impulse control disorder, unspecified (3) Anxiety disorder, unspecified SAYRA SALGADO MD Oct 17, 2020 07:51
[2020-10-17] MEDS: FUROSEMIDE 40 MG TABLET PO SCH (08:04)
[2020-10-17] MEDS: SUCRALFATE 1 GM TABLET. PO SCH ×3 (08:04→16:49)
[2020-10-17] MEDS: ASPIRIN CHEWABLE 81 MG TABLET. PO SCH (08:04)
[2020-10-17] MEDS: ATORVASTATIN CALCIUM 20 MG TABLET PO SCH (08:05)
[2020-10-17] MEDS: PANTOPRAZOLE 40 MG TABLET. PO SCH ×2 (08:05→19:19)
[2020-10-17] MEDS: POTASSIUM CHLORIDE 20 MEQ TABLET.ER. PO SCH (08:05)
[2020-10-17] MEDS: METOPROLOL SUCC 24HR ER 25 MG TAB.ER.24H. PO SCH (08:05)
[2020-10-17] MEDS: SERTRALINE 50 MG TABLET. PO SCH (08:05)
[2020-10-17 16:01] VITALS: BP 133/84
[2020-10-17] MEDS: TEMAZEPAM 7.5 MG CAPSULE PO SCH (19:20)
[2020-10-17] MEDS: GABAPENTIN 300 MG CAPSULE. PO SCH (19:20)
--- NOTE | 2020-10-17 20:54 | PDOC ---
Exam Note: Karl Note: Please also refer to the separate dictated note~for this date of service dictated separately.~Patient seen individually. Discussed the patient with Nursing staff reviewed the chart.~Reviewed interim history and current functioning. Reviewed vital signs,~Labs/ Radiology~and current medications noted below. Continue current treatment with the changes noted in the dictated addendum note Assessment: Vital Signs/I&O: Vital Signs Date Time Temp Pulse Resp B/P (MAP) Pulse Ox O2 Delivery O2 Flow Rate FiO2 10/17/20 16:01 97.9 82 20 133/84 (100) 97 Room Air I & O 10/16/20 10/16/20 10/17/20 14:59 22:59 06:59 Intake Total 840 ml 600 ml Balance 840 ml 600 ml Current Medications: Meds: Current Medications Medications (Trade) Dose Ordered Sig/Estefany Route PRN Reason Start Time Stop Time Status Last Admin Dose Admin Acetaminophen (Tylenol) 650 mg PRN Q6HRS PRN PO MILD PAIN / TEMP > 100.3'F 10/13/20 17:45 10/16/20 08:32 Multi-Ingredient Ointment (Analgesic [place]) 1 lili PRN QID PRN TP MUSCLE PAIN 10/13/20 17:45 Al Hydroxide/Mg Hydroxide (Mylanta Plus Xs) 15 ml PRN AFTMEALHC PRN PO DYSPEPSIA 10/13/20 17:45 Magnesium Hydroxide (Milk Of Magnesia) 2,400 mg PRN QHS PRN PO CONSTIPATION 10/13/20 17:45 Acetaminophen (Tylenol) 650 mg PRN Q6HRS PRN PO pain or fever 10/13/20 18:00 UNV Aspirin (Aspirin Chewable) 81 mg DAILY PO 10/14/20 09:00 10/17/20 08:04 Furosemide (Lasix) 40 mg DAILY PO 10/14/20 09:00 10/17/20 08:04 Gabapentin (Neurontin) 300 mg HS PO 10/13/20 21:00 10/17/20 19:20 Metoprolol Succinate (Toprol Xl) 75 mg DAILY PO 10/14/20 09:00 10/17/20 08:05 Ondansetron HCl (Zofran Odt) 4 mg PRN Q6HRS PRN PO NAUSEA/VOMITING 10/13/20 18:00 Pantoprazole Sodium (Protonix) 40 mg BID PO 10/13/20 21:00 10/17/20 19:19 Potassium Chloride (Klor-Con) 20 meq DAILY PO 10/14/20 09:00 10/17/20 08:05 Sertraline HCl (Zoloft) 50 mg DAILY PO 10/14/20 09:00 10/14/20 10:47 DC 10/14/20 08:14 Sucralfate (Carafate) 1 gm TIDBFRMEAL PO 10/14/20 07:30 10/17/20 16:49 Temazepam (Restoril) 7.5 mg QHS PO 10/13/20 21:00 10/17/20 19:20 Atorvastatin Calcium (Lipitor) 40 mg DAILY PO 10/14/20 09:00 10/17/20 08:05 Sertraline HCl (Zoloft) 75 mg DAILY PO 10/15/20 09:00 10/17/20 08:05 I have reviewed the current psychotropics carefully including drug interactions. Risk benefit ratio favors no change other than as noted in my dictated progress note. Diagnosis: Problems: (1) Major depressive disorder, recurrent episode (2) Impulse control disorder, unspecified (3) Anxiety disorder, unspecified ASYRA SALGADO MD Oct 17, 2020 20:54
[2020-10-18 06:13] VITALS: BP 150/88
--- NOTE | 2020-10-18 08:15 | PDOC ---
Exam Note: Karl Note: This note is a late entry for 10/17/2020 covers elements not covered in my initial note. Subjective: The patient was seen individually in the evening of 10/17/2020 with Gallito BALLARD, discussed and reviewed the chart. She slept 6-1/2 hours previous night. Review of Systems: No CV, , eye, ENT system symptoms on review. Mental Status Exam: The patient is oriented to herself and situation. She was once again talking about discharge plans and we addressed with her and she will discuss with her with social service staff. Abstraction is fair. Computation is somewhat impaired. Language function is intact. Mood and affect quite labile. No suicidal or homicidal ideation. Laboratory Data: Reviewed. 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 Anxiety disorder unspecified. Impulse control disorder unspecified. Plan: Continue current psychotropics. Assessment: Vital Signs/I&O: Vital Signs Date Time Temp Pulse Resp B/P (MAP) Pulse Ox O2 Delivery O2 Flow Rate FiO2 10/18/20 06:13 98.2 106 20 150/88 (108) 94 Room Air I & O 10/17/20 10/17/20 10/18/20 15:00 23:00 07:00 Intake Total 600 ml 480 ml Balance 600 ml 480 ml Current Medications: Meds: Current Medications Medications (Trade) Dose Ordered Sig/Estefany Route PRN Reason Start Time Stop Time Status Last Admin Dose Admin Acetaminophen (Tylenol) 650 mg PRN Q6HRS PRN PO MILD PAIN / TEMP > 100.3'F 10/13/20 17:45 10/16/20 08:32 Multi-Ingredient Ointment (Analgesic [place]) 1 lili PRN QID PRN TP MUSCLE PAIN 10/13/20 17:45 Al Hydroxide/Mg Hydroxide (Mylanta Plus Xs) 15 ml PRN AFTMEALHC PRN PO DYSPEPSIA 10/13/20 17:45 Magnesium Hydroxide (Milk Of Magnesia) 2,400 mg PRN QHS PRN PO CONSTIPATION 10/13/20 17:45 Acetaminophen (Tylenol) 650 mg PRN Q6HRS PRN PO pain or fever 10/13/20 18:00 UNV Aspirin (Aspirin Chewable) 81 mg DAILY PO 10/14/20 09:00 10/17/20 08:04 Furosemide (Lasix) 40 mg DAILY PO 10/14/20 09:00 10/17/20 08:04 Gabapentin (Neurontin) 300 mg HS PO 10/13/20 21:00 10/17/20 19:20 Metoprolol Succinate (Toprol Xl) 75 mg DAILY PO 10/14/20 09:00 10/17/20 08:05 Ondansetron HCl (Zofran Odt) 4 mg PRN Q6HRS PRN PO NAUSEA/VOMITING 10/13/20 18:00 Pantoprazole Sodium (Protonix) 40 mg BID PO 10/13/20 21:00 10/17/20 19:19 Potassium Chloride (Klor-Con) 20 meq DAILY PO 10/14/20 09:00 10/17/20 08:05 Sertraline HCl (Zoloft) 50 mg DAILY PO 10/14/20 09:00 10/14/20 10:47 DC 10/14/20 08:14 Sucralfate (Carafate) 1 gm TIDBFRMEAL PO 10/14/20 07:30 10/17/20 16:49 Temazepam (Restoril) 7.5 mg QHS PO 10/13/20 21:00 10/17/20 19:20 Atorvastatin Calcium (Lipitor) 40 mg DAILY PO 10/14/20 09:00 10/17/20 08:05 Sertraline HCl (Zoloft) 75 mg DAILY PO 10/15/20 09:00 10/17/20 08:05 I have reviewed the current psychotropics carefully including drug interactions. Risk benefit ratio favors no change other than as noted in my dictated progress note. Diagnosis: Problems: (1) Major depressive disorder, recurrent episode (2) Impulse control disorder, unspecified (3) Anxiety disorder, unspecified SAYRA SALGADO MD Oct 18, 2020 08:15
[2020-10-18] MEDS: ATORVASTATIN CALCIUM 20 MG TABLET PO SCH (08:18)
[2020-10-18] MEDS: SERTRALINE 50 MG TABLET. PO SCH (08:19)
[2020-10-18] MEDS: METOPROLOL SUCC 24HR ER 25 MG TAB.ER.24H. PO SCH (08:19)
[2020-10-18] MEDS: PANTOPRAZOLE 40 MG TABLET. PO SCH ×2 (08:19→19:21)
[2020-10-18] MEDS: POTASSIUM CHLORIDE 20 MEQ TABLET.ER. PO SCH (08:19)
[2020-10-18] MEDS: FUROSEMIDE 40 MG TABLET PO SCH (08:20)
[2020-10-18] MEDS: ASPIRIN CHEWABLE 81 MG TABLET. PO SCH (08:20)
[2020-10-18] MEDS: SUCRALFATE 1 GM TABLET. PO SCH ×3 (08:20→16:43)
[2020-10-18 09:09] LABS: THYROXINE 7.1 ug/dL (4.5-12.0)
[2020-10-18 15:59] VITALS: BP 126/94
[2020-10-18] MEDS: GABAPENTIN 300 MG CAPSULE. PO SCH (19:21)
[2020-10-18] MEDS: TEMAZEPAM 7.5 MG CAPSULE PO SCH (19:48)
--- NOTE | 2020-10-18 21:14 | PDOC ---
Exam Note: Karl Note: Please also refer to the separate dictated note~for this date of service dictated separately.~Patient seen individually. Discussed the patient with Nursing staff reviewed the chart.~Reviewed interim history and current functioning. Reviewed vital signs,~Labs/ Radiology~and current medications noted below. Continue current treatment with the changes noted in the dictated addendum note Assessment: Vital Signs/I&O: Vital Signs Date Time Temp Pulse Resp B/P (MAP) Pulse Ox O2 Delivery O2 Flow Rate FiO2 10/18/20 15:59 97.7 79 18 126/94 (105) 94 10/18/20 06:13 Room Air I & O 10/17/20 10/17/20 10/18/20 15:00 23:00 07:00 Intake Total 600 ml 480 ml Balance 600 ml 480 ml Current Medications: Meds: Current Medications Medications (Trade) Dose Ordered Sig/Estefany Route PRN Reason Start Time Stop Time Status Last Admin Dose Admin Acetaminophen (Tylenol) 650 mg PRN Q6HRS PRN PO MILD PAIN / TEMP > 100.3'F 10/13/20 17:45 10/16/20 08:32 Multi-Ingredient Ointment (Analgesic [place]) 1 lili PRN QID PRN TP MUSCLE PAIN 10/13/20 17:45 Al Hydroxide/Mg Hydroxide (Mylanta Plus Xs) 15 ml PRN AFTMEALHC PRN PO DYSPEPSIA 10/13/20 17:45 Magnesium Hydroxide (Milk Of Magnesia) 2,400 mg PRN QHS PRN PO CONSTIPATION 10/13/20 17:45 Acetaminophen (Tylenol) 650 mg PRN Q6HRS PRN PO pain or fever 10/13/20 18:00 UNV Aspirin (Aspirin Chewable) 81 mg DAILY PO 10/14/20 09:00 10/18/20 08:20 Furosemide (Lasix) 40 mg DAILY PO 10/14/20 09:00 10/18/20 08:20 Gabapentin (Neurontin) 300 mg HS PO 10/13/20 21:00 10/18/20 19:21 Metoprolol Succinate (Toprol Xl) 75 mg DAILY PO 10/14/20 09:00 10/18/20 08:19 Ondansetron HCl (Zofran Odt) 4 mg PRN Q6HRS PRN PO NAUSEA/VOMITING 10/13/20 18:00 Pantoprazole Sodium (Protonix) 40 mg BID PO 10/13/20 21:00 10/18/20 19:21 Potassium Chloride (Klor-Con) 20 meq DAILY PO 10/14/20 09:00 10/18/20 08:19 Sertraline HCl (Zoloft) 50 mg DAILY PO 10/14/20 09:00 10/14/20 10:47 DC 10/14/20 08:14 Sucralfate (Carafate) 1 gm TIDBFRMEAL PO 10/14/20 07:30 10/18/20 16:43 Temazepam (Restoril) 7.5 mg QHS PO 10/13/20 21:00 10/18/20 19:48 Atorvastatin Calcium (Lipitor) 40 mg DAILY PO 10/14/20 09:00 10/18/20 08:18 Sertraline HCl (Zoloft) 75 mg DAILY PO 10/15/20 09:00 10/18/20 08:19 I have reviewed the current psychotropics carefully including drug interactions. Risk benefit ratio favors no change other than as noted in my dictated progress note. Diagnosis: Problems: (1) Major depressive disorder, recurrent episode (2) Impulse control disorder, unspecified (3) Anxiety disorder, unspecified SAYRA SALGADO MD Oct 18, 2020 21:14
[2020-10-19 06:04] VITALS: BP 149/91
[2020-10-19] MEDS: METOPROLOL SUCC 24HR ER 25 MG TAB.ER.24H. PO SCH (08:13)
[2020-10-19] MEDS: FUROSEMIDE 40 MG TABLET PO SCH (08:13)
[2020-10-19] MEDS: SUCRALFATE 1 GM TABLET. PO SCH ×3 (08:13→16:42)
[2020-10-19] MEDS: ASPIRIN CHEWABLE 81 MG TABLET. PO SCH (08:13)
[2020-10-19] MEDS: ATORVASTATIN CALCIUM 20 MG TABLET PO SCH (08:14)
[2020-10-19] MEDS: PANTOPRAZOLE 40 MG TABLET. PO SCH ×2 (08:14→19:46)
[2020-10-19] MEDS: POTASSIUM CHLORIDE 20 MEQ TABLET.ER. PO SCH (08:15)
[2020-10-19] MEDS: SERTRALINE 50 MG TABLET. PO SCH (08:15)
[2020-10-19 16:16] VITALS: BP 134/82
[2020-10-19] MEDS: TEMAZEPAM 7.5 MG CAPSULE PO SCH (19:46)
[2020-10-19] MEDS: GABAPENTIN 300 MG CAPSULE. PO SCH (19:46)
--- NOTE | 2020-10-19 20:46 | PDOC ---
Exam Note: Karl Note: This note is a late entry for 10/18/2020 covers elements not covered in my initial note. Subjective: The patient was seen individually in the evening of 10/18/2020 with Gerald BALLARD, discussed and reviewed the chart. She slept 8 hours previous night. Overall she remains anxious, fixated on being discharged and I addressed this with her again at length. Review of Systems: No CV, , eye, ENT system symptoms on review. Mental Status Exam: The patient is reasonably oriented. Speech coherent, rapid at times. As I met with her in the evening she was obsessed and talking repeatedly about discharge plans, quite anxious. Abstraction is fair. Computation is somewhat impaired. Language function is intact. Attention span is short. Mood and affect somewhat anxious, labile. Laboratory Data: Reviewed. 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 Anxiety disorder unspecified. Impulse control disorder unspecified. Plan: Maintain Zoloft, gabapentin, and temazepam 7.5 mg h.s. p.r.n. for insomnia. Assessment: Vital Signs/I&O: Vital Signs Date Time Temp Pulse Resp B/P (MAP) Pulse Ox O2 Delivery O2 Flow Rate FiO2 10/19/20 16:16 97.6 76 16 134/82 (99) 98 10/19/20 06:04 Room Air I & O 10/18/20 10/18/20 10/19/20 15:00 23:00 07:00 Intake Total 600 ml 360 ml Balance 600 ml 360 ml Current Medications: Meds: Current Medications Medications (Trade) Dose Ordered Sig/Estefany Route PRN Reason Start Time Stop Time Status Last Admin Dose Admin Acetaminophen (Tylenol) 650 mg PRN Q6HRS PRN PO MILD PAIN / TEMP > 100.3'F 10/13/20 17:45 10/16/20 08:32 Multi-Ingredient Ointment (Analgesic [place]) 1 lili PRN QID PRN TP MUSCLE PAIN 10/13/20 17:45 Al Hydroxide/Mg Hydroxide (Mylanta Plus Xs) 15 ml PRN AFTMEALHC PRN PO DYSPEPSIA 10/13/20 17:45 Magnesium Hydroxide (Milk Of Magnesia) 2,400 mg PRN QHS PRN PO CONSTIPATION 10/13/20 17:45 Acetaminophen (Tylenol) 650 mg PRN Q6HRS PRN PO pain or fever 10/13/20 18:00 UNV Aspirin (Aspirin Chewable) 81 mg DAILY PO 10/14/20 09:00 10/19/20 08:13 Furosemide (Lasix) 40 mg DAILY PO 10/14/20 09:00 10/19/20 08:13 Gabapentin (Neurontin) 300 mg HS PO 10/13/20 21:00 10/19/20 19:46 Metoprolol Succinate (Toprol Xl) 75 mg DAILY PO 10/14/20 09:00 10/19/20 08:13 Ondansetron HCl (Zofran Odt) 4 mg PRN Q6HRS PRN PO NAUSEA/VOMITING 10/13/20 18:00 Pantoprazole Sodium (Protonix) 40 mg BID PO 10/13/20 21:00 10/19/20 19:46 Potassium Chloride (Klor-Con) 20 meq DAILY PO 10/14/20 09:00 10/19/20 08:15 Sertraline HCl (Zoloft) 50 mg DAILY PO 10/14/20 09:00 10/14/20 10:47 DC 10/14/20 08:14 Sucralfate (Carafate) 1 gm TIDBFRMEAL PO 10/14/20 07:30 10/19/20 16:42 Temazepam (Restoril) 7.5 mg QHS PO 10/13/20 21:00 10/19/20 19:46 Atorvastatin Calcium (Lipitor) 40 mg DAILY PO 10/14/20 09:00 10/19/20 08:14 Sertraline HCl (Zoloft) 75 mg DAILY PO 10/15/20 09:00 10/19/20 08:15 I have reviewed the current psychotropics carefully including drug interactions. Risk benefit ratio favors no change other than as noted in my dictated progress note. Diagnosis: Problems: (1) Major depressive disorder, recurrent episode (2) Impulse control disorder, unspecified (3) Anxiety disorder, unspecified SAYRA SALGADO MD Oct 19, 2020 20:46
--- NOTE | 2020-10-19 20:46 | PDOC ---
Exam Note: Karl Note: Please also refer to the separate dictated note~for this date of service dictated separately.~Patient seen individually. Discussed the patient with Nursing staff reviewed the chart.~Reviewed interim history and current functioning. Reviewed vital signs,~Labs/ Radiology~and current medications noted below. Continue current treatment with the changes noted in the dictated addendum note Assessment: Vital Signs/I&O: Vital Signs Date Time Temp Pulse Resp B/P (MAP) Pulse Ox O2 Delivery O2 Flow Rate FiO2 10/19/20 16:16 97.6 76 16 134/82 (99) 98 10/19/20 06:04 Room Air I & O 10/18/20 10/18/20 10/19/20 15:00 23:00 07:00 Intake Total 600 ml 360 ml Balance 600 ml 360 ml Current Medications: Meds: Current Medications Medications (Trade) Dose Ordered Sig/Estefany Route PRN Reason Start Time Stop Time Status Last Admin Dose Admin Acetaminophen (Tylenol) 650 mg PRN Q6HRS PRN PO MILD PAIN / TEMP > 100.3'F 10/13/20 17:45 10/16/20 08:32 Multi-Ingredient Ointment (Analgesic [place]) 1 lili PRN QID PRN TP MUSCLE PAIN 10/13/20 17:45 Al Hydroxide/Mg Hydroxide (Mylanta Plus Xs) 15 ml PRN AFTMEALHC PRN PO DYSPEPSIA 10/13/20 17:45 Magnesium Hydroxide (Milk Of Magnesia) 2,400 mg PRN QHS PRN PO CONSTIPATION 10/13/20 17:45 Acetaminophen (Tylenol) 650 mg PRN Q6HRS PRN PO pain or fever 10/13/20 18:00 UNV Aspirin (Aspirin Chewable) 81 mg DAILY PO 10/14/20 09:00 10/19/20 08:13 Furosemide (Lasix) 40 mg DAILY PO 10/14/20 09:00 10/19/20 08:13 Gabapentin (Neurontin) 300 mg HS PO 10/13/20 21:00 10/19/20 19:46 Metoprolol Succinate (Toprol Xl) 75 mg DAILY PO 10/14/20 09:00 10/19/20 08:13 Ondansetron HCl (Zofran Odt) 4 mg PRN Q6HRS PRN PO NAUSEA/VOMITING 10/13/20 18:00 Pantoprazole Sodium (Protonix) 40 mg BID PO 10/13/20 21:00 10/19/20 19:46 Potassium Chloride (Klor-Con) 20 meq DAILY PO 10/14/20 09:00 10/19/20 08:15 Sertraline HCl (Zoloft) 50 mg DAILY PO 10/14/20 09:00 10/14/20 10:47 DC 10/14/20 08:14 Sucralfate (Carafate) 1 gm TIDBFRMEAL PO 10/14/20 07:30 10/19/20 16:42 Temazepam (Restoril) 7.5 mg QHS PO 10/13/20 21:00 10/19/20 19:46 Atorvastatin Calcium (Lipitor) 40 mg DAILY PO 10/14/20 09:00 10/19/20 08:14 Sertraline HCl (Zoloft) 75 mg DAILY PO 10/15/20 09:00 10/19/20 08:15 I have reviewed the current psychotropics carefully including drug interactions. Risk benefit ratio favors no change other than as noted in my dictated progress note. Diagnosis: Problems: (1) Major depressive disorder, recurrent episode (2) Impulse control disorder, unspecified (3) Anxiety disorder, unspecified SAYRA SALGADO MD Oct 19, 2020 20:46
[2020-10-19] MEDS: ACETAMINOPHEN 325 MG TABLET PO PRN (21:06)
[2020-10-20 06:01] VITALS: BP 126/76
--- NOTE | 2020-10-20 08:01 | PDOC ---
Exam Note: Karl Note: This note is a late entry for 10/19/2020 covers elements not covered in my initial note. Subjective: The patient was seen individually in the evening of 10/19/2020 with Gerald BALLARD, discussed and reviewed the chart. She slept 7-1/4 hours previous night. She remains confused. Overall the patient remains somewhat anxious, obsessive. I received an email from Moya Okruga that the patient scored 18/30 on the mini-mental status exam. Family apparently are wanting her placed rather than return home. We will request Dr. Hancock to do further psychological testing to clarify capacity to make decisions for herself. Review of Systems: No CV, , eye, ENT system symptoms on review. Mental Status Exam: The patient is reasonably oriented. She is quite obsessive repeatedly asking about discharge plans. I addressed with her at length. On specific questioning she knew it was 2020, had forgotten the name of the President but she knew the name stated with B. She was able to do one step on serial 7s. Speech coherent, rapid at times. Abstraction is fair. Computation is somewhat impaired. Language function is intact. Attention span is short. Mood and affect somewhat anxious. Laboratory Data: Reviewed. 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 Anxiety disorder unspecified. Impulse control disorder unspecified. Plan: No change from initial note. Assessment: Vital Signs/I&O: Vital Signs Date Time Temp Pulse Resp B/P (MAP) Pulse Ox O2 Delivery O2 Flow Rate FiO2 10/20/20 06:01 97.3 64 16 126/76 (93) 98 Room Air I & O 10/19/20 10/19/20 10/20/20 15:00 23:00 07:00 Intake Total 720 ml 600 ml Balance 720 ml 600 ml Current Medications: Meds: Current Medications Medications (Trade) Dose Ordered Sig/Estefany Route PRN Reason Start Time Stop Time Status Last Admin Dose Admin Acetaminophen (Tylenol) 650 mg PRN Q6HRS PRN PO MILD PAIN / TEMP > 100.3'F 10/13/20 17:45 10/19/20 21:06 Multi-Ingredient Ointment (Analgesic [place]) 1 lili PRN QID PRN TP MUSCLE PAIN 10/13/20 17:45 Al Hydroxide/Mg Hydroxide (Mylanta Plus Xs) 15 ml PRN AFTMEALHC PRN PO DYSPEPSIA 10/13/20 17:45 Magnesium Hydroxide (Milk Of Magnesia) 2,400 mg PRN QHS PRN PO CONSTIPATION 10/13/20 17:45 Acetaminophen (Tylenol) 650 mg PRN Q6HRS PRN PO pain or fever 10/13/20 18:00 UNV Aspirin (Aspirin Chewable) 81 mg DAILY PO 10/14/20 09:00 10/19/20 08:13 Furosemide (Lasix) 40 mg DAILY PO 10/14/20 09:00 10/19/20 08:13 Gabapentin (Neurontin) 300 mg HS PO 10/13/20 21:00 10/19/20 19:46 Metoprolol Succinate (Toprol Xl) 75 mg DAILY PO 10/14/20 09:00 10/19/20 08:13 Ondansetron HCl (Zofran Odt) 4 mg PRN Q6HRS PRN PO NAUSEA/VOMITING 10/13/20 18:00 Pantoprazole Sodium (Protonix) 40 mg BID PO 10/13/20 21:00 10/19/20 19:46 Potassium Chloride (Klor-Con) 20 meq DAILY PO 10/14/20 09:00 10/19/20 08:15 Sertraline HCl (Zoloft) 50 mg DAILY PO 10/14/20 09:00 10/14/20 10:47 DC 10/14/20 08:14 Sucralfate (Carafate) 1 gm TIDBFRMEAL PO 10/14/20 07:30 10/19/20 16:42 Temazepam (Restoril) 7.5 mg QHS PO 10/13/20 21:00 10/19/20 19:46 Atorvastatin Calcium (Lipitor) 40 mg DAILY PO 10/14/20 09:00 10/19/20 08:14 Sertraline HCl (Zoloft) 75 mg DAILY PO 10/15/20 09:00 10/19/20 08:15 I have reviewed the current psychotropics carefully including drug interactions. Risk benefit ratio favors no change other than as noted in my dictated progress note. Diagnosis: Problems: (1) Major depressive disorder, recurrent episode (2) Impulse control disorder, unspecified (3) Anxiety disorder, unspecified SAYRA SALGADO MD Oct 20, 2020 08:01
[2020-10-20] MEDS: SUCRALFATE 1 GM TABLET. PO SCH ×3 (08:05→16:21)
[2020-10-20] MEDS: METOPROLOL SUCC 24HR ER 25 MG TAB.ER.24H. PO SCH (08:05)
[2020-10-20] MEDS: PANTOPRAZOLE 40 MG TABLET. PO SCH ×2 (08:06→19:39)
[2020-10-20] MEDS: FUROSEMIDE 40 MG TABLET PO SCH (08:06)
[2020-10-20] MEDS: ACETAMINOPHEN 325 MG TABLET PO PRN (08:06)
[2020-10-20] MEDS: POTASSIUM CHLORIDE 20 MEQ TABLET.ER. PO SCH (08:06)
[2020-10-20] MEDS: ASPIRIN CHEWABLE 81 MG TABLET. PO SCH (08:06)
[2020-10-20] MEDS: SERTRALINE 50 MG TABLET. PO SCH (08:07)
[2020-10-20] MEDS: ATORVASTATIN CALCIUM 20 MG TABLET PO SCH (08:07)
[2020-10-20] MEDS: GABAPENTIN 300 MG CAPSULE. PO SCH (19:39)
[2020-10-20] MEDS: TEMAZEPAM 7.5 MG CAPSULE PO SCH (19:39)
[2020-10-20 21:00] VITALS: BP 117/77
--- NOTE | 2020-10-20 21:45 | PDOC ---
Exam Note: Karl Note: Please also refer to the separate dictated note~for this date of service dictated separately.~Patient seen individually. Discussed the patient with Nursing staff reviewed the chart.~Reviewed interim history and current functioning. Reviewed vital signs,~Labs/ Radiology~and current medications noted below. Continue current treatment with the changes noted in the dictated addendum note Assessment: Vital Signs/I&O: Vital Signs Date Time Temp Pulse Resp B/P (MAP) Pulse Ox O2 Delivery O2 Flow Rate FiO2 10/20/20 21:00 98.0 73 16 117/77 (90) 95 Room Air I & O 10/19/20 10/19/20 10/20/20 15:00 23:00 07:00 Intake Total 720 ml 600 ml Balance 720 ml 600 ml Current Medications: I have reviewed the current psychotropics carefully including drug interactions. Risk benefit ratio favors no change other than as noted in my dictated progress note. Diagnosis: Problems: (1) Major depressive disorder, recurrent episode (2) Impulse control disorder, unspecified (3) Anxiety disorder, unspecified SAYRA SALGADO MD Oct 20, 2020 21:45
[2020-10-21 05:28] VITALS: BP_SYST 121; BP_SYST 145; BP_DIAS 73; BP_DIAS 80
[2020-10-21 06:35] LABS: BASO # 0.1 x10^3/uL (0.0-0.2); BASO % 1 % (0-3); EOS # 0.3 x10^3/uL (0.0-0.7); EOS % 4 % (0-3); HEMATOCRIT 38.8 % (36.0-47.0); HEMOGLOBIN 12.8 g/dL (12.0-15.5); LYMPH # 1.7 x10^3/uL (1.0-4.8); LYMPH % 27 % (24-48); MEAN CORPUSCULAR HEMOGLOBIN 31 pg (25-35); MEAN CORPUSCULAR HGB CONC 33 g/dL (31-37); MEAN CORPUSCULAR VOLUME 95 fL (79-100); MONO # 0.7 x10^3/uL (0.0-1.1); MONO % 12 % (0-9); NEUT # 3.4 x10^3uL (1.8-7.7); NEUT % 55 % (31-73); PLATELET COUNT 184 x10^3/uL (140-400); RED BLOOD COUNT 4.08 x10^6/uL (3.50-5.40); RED CELL DISTRIBUTION WIDTH 15.4 % (11.5-14.5); WHITE BLOOD COUNT 6.1 x10^3/uL (4.0-11.0)
[2020-10-21 06:55] LABS: ALBUMIN 2.9 g/dL (3.4-5.0); ALBUMIN/GLOBULIN RATIO 0.9 (1.0-1.7); CALCIUM 8.6 mg/dL (8.5-10.1); CREATININE 1.3 mg/dL (0.6-1.0); GFR 38.9; POTASSIUM 3.5 mmol/L (3.5-5.1); TOTAL BILIRUBIN 0.6 mg/dL (0.2-1.0); TOTAL PROTEIN 6.1 g/dL (6.4-8.2)
--- NOTE | 2020-10-21 07:48 | PDOC ---
Exam Note: Karl Note: This note is a late entry for 10/20/2020 covers elements not covered in my initial note. Subjective: The patient was seen individually in the evening of 10/20/2020 with Gerald BALLARD, discussed and reviewed the chart. She slept 7 hours previous night. Previous night, the patient was quite irritable because the fan was blowing air really hard in her room and she disliked it. She did accept it how it was. She remains somewhat helpless, attention seeking wanting to sit in a wheelchair even though she can ambulate on her own. I addressed this with her individually. Review of Systems: Patient is in a wheelchair but can ambulate. No CV, , eye, ENT system symptoms on review. Mental Status Exam: The patient is oriented to herself and situation. Speech coherent, somewhat pressured, obsessing about discharge plans and I addressed with her. Abstraction is fair. Computation is somewhat impaired. Language function is intact. Attention span is short. Mood and affect is depressed, somewhat suspicious. No suicidal or homicidal ideation. Laboratory Data: Reviewed. 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 Anxiety disorder unspecified. Impulse control disorder unspecified. Plan: No change from initial note. Assessment: Vital Signs/I&O: Vital Signs Date Time Temp Pulse Resp B/P (MAP) Pulse Ox O2 Delivery O2 Flow Rate FiO2 10/21/20 05:28 96.8 77 18 145/80 (101) 95 Room Air I & O 10/20/20 10/20/20 10/21/20 15:00 23:00 07:00 Intake Total 600 ml 600 ml Balance 600 ml 600 ml Labs: Laboratory Tests Test 10/21/20 05:58 White Blood Count 6.1 x10^3/uL (4.0-11.0) Red Blood Count 4.08 x10^6/uL (3.50-5.40) Hemoglobin 12.8 g/dL (12.0-15.5) Hematocrit 38.8 % (36.0-47.0) Mean Corpuscular Volume 95 fL (79-100) Mean Corpuscular Hemoglobin 31 pg (25-35) Mean Corpuscular Hemoglobin Concent 33 g/dL (31-37) Red Cell Distribution Width 15.4 % (11.5-14.5) H Platelet Count 184 x10^3/uL (140-400) Neutrophils (%) (Auto) 55 % (31-73) Lymphocytes (%) (Auto) 27 % (24-48) Monocytes (%) (Auto) 12 % (0-9) H Eosinophils (%) (Auto) 4 % (0-3) H Basophils (%) (Auto) 1 % (0-3) Neutrophils # (Auto) 3.4 x10^3uL (1.8-7.7) Lymphocytes # (Auto) 1.7 x10^3/uL (1.0-4.8) Monocytes # (Auto) 0.7 x10^3/uL (0.0-1.1) Eosinophils # (Auto) 0.3 x10^3/uL (0.0-0.7) Basophils # (Auto) 0.1 x10^3/uL (0.0-0.2) Sodium Level 145 mmol/L (136-145) Potassium Level 3.5 mmol/L (3.5-5.1) Chloride Level 107 mmol/L (98-107) Carbon Dioxide Level 30 mmol/L (21-32) Anion Gap 8 (6-14) Blood Urea Nitrogen 18 mg/dL (7-20) Creatinine 1.3 mg/dL (0.6-1.0) H Estimated GFR (Cockcroft-Gault) 38.9 BUN/Creatinine Ratio 14 (6-20) Glucose Level 100 mg/dL (70-99) H Calcium Level 8.6 mg/dL (8.5-10.1) Total Bilirubin 0.6 mg/dL (0.2-1.0) Aspartate Amino Transferase (AST) 14 U/L (15-37) L Alanine Aminotransferase (ALT) 7 U/L (14-59) L Alkaline Phosphatase 103 U/L (46-116) Total Protein 6.1 g/dL (6.4-8.2) L Albumin 2.9 g/dL (3.4-5.0) L Albumin/Globulin Ratio 0.9 (1.0-1.7) L Current Medications: Meds: Laboratory Tests Test 10/21/20 05:58 White Blood Count 6.1 x10^3/uL Red Blood Count 4.08 x10^6/uL Hemoglobin 12.8 g/dL Hematocrit 38.8 % Mean Corpuscular Volume 95 fL Mean Corpuscular Hemoglobin 31 pg Mean Corpuscular Hemoglobin Concent 33 g/dL Red Cell Distribution Width 15.4 % Platelet Count 184 x10^3/uL Neutrophils (%) (Auto) 55 % Lymphocytes (%) (Auto) 27 % Monocytes (%) (Auto) 12 % Eosinophils (%) (Auto) 4 % Basophils (%) (Auto) 1 % Neutrophils # (Auto) 3.4 x10^3uL Lymphocytes # (Auto) 1.7 x10^3/uL Monocytes # (Auto) 0.7 x10^3/uL Eosinophils # (Auto) 0.3 x10^3/uL Basophils # (Auto) 0.1 x10^3/uL Sodium Level 145 mmol/L Potassium Level 3.5 mmol/L Chloride Level 107 mmol/L Carbon Dioxide Level 30 mmol/L Anion Gap 8 Blood Urea Nitrogen 18 mg/dL Creatinine 1.3 mg/dL Estimated GFR (Cockcroft-Gault) 38.9 BUN/Creatinine Ratio 14 Glucose Level 100 mg/dL Calcium Level 8.6 mg/dL Total Bilirubin 0.6 mg/dL Aspartate Amino Transf (AST/SGOT) 14 U/L Alanine Aminotransferase (ALT/SGPT) 7 U/L Alkaline Phosphatase 103 U/L Total Protein 6.1 g/dL Albumin 2.9 g/dL Albumin/Globulin Ratio 0.9 Current Medications Medications (Trade) Dose Ordered Sig/Estefany Route PRN Reason Start Time Stop Time Status Last Admin Dose Admin Acetaminophen (Tylenol) 650 mg PRN Q6HRS PRN PO MILD PAIN / TEMP > 100.3'F 10/13/20 17:45 10/20/20 08:06 Multi-Ingredient Ointment (Analgesic [place]) 1 lili PRN QID PRN TP MUSCLE PAIN 10/13/20 17:45 Al Hydroxide/Mg Hydroxide (Mylanta Plus Xs) 15 ml PRN AFTMEALHC PRN PO DYSPEPSIA 10/13/20 17:45 Magnesium Hydroxide (Milk Of Magnesia) 2,400 mg PRN QHS PRN PO CONSTIPATION 10/13/20 17:45 Acetaminophen (Tylenol) 650 mg PRN Q6HRS PRN PO pain or fever 10/13/20 18:00 UNV Aspirin (Aspirin Chewable) 81 mg DAILY PO 10/14/20 09:00 10/20/20 08:06 Furosemide (Lasix) 40 mg DAILY PO 10/14/20 09:00 10/20/20 08:06 Gabapentin (Neurontin) 300 mg HS PO 10/13/20 21:00 10/20/20 19:39 Metoprolol Succinate (Toprol Xl) 75 mg DAILY PO 10/14/20 09:00 10/20/20 08:05 Ondansetron HCl (Zofran Odt) 4 mg PRN Q6HRS PRN PO NAUSEA/VOMITING 10/13/20 18:00 Pantoprazole Sodium (Protonix) 40 mg BID PO 10/13/20 21:00 10/20/20 19:39 Potassium Chloride (Klor-Con) 20 meq DAILY PO 10/14/20 09:00 10/20/20 08:06 Sertraline HCl (Zoloft) 50 mg DAILY PO 10/14/20 09:00 10/14/20 10:47 DC 10/14/20 08:14 Sucralfate (Carafate) 1 gm TIDBFRMEAL PO 10/14/20 07:30 10/20/20 16:21 Temazepam (Restoril) 7.5 mg QHS PO 10/13/20 21:00 10/20/20 19:39 Atorvastatin Calcium (Lipitor) 40 mg DAILY PO 10/14/20 09:00 10/20/20 08:07 Sertraline HCl (Zoloft) 75 mg DAILY PO 10/15/20 09:00 10/20/20 08:07 I have reviewed the current psychotropics carefully including drug interactions. Risk benefit ratio favors no change other than as noted in my dictated progress note. Diagnosis: Problems: (1) Major depressive disorder, recurrent episode (2) Impulse control disorder, unspecified (3) Anxiety disorder, unspecified SAYRA SALGADO MD Oct 21, 2020 07:48
[2020-10-21] MEDS: SUCRALFATE 1 GM TABLET. PO SCH ×3 (08:26→16:30)
[2020-10-21] MEDS: ATORVASTATIN CALCIUM 20 MG TABLET PO SCH (08:27)
[2020-10-21] MEDS: SERTRALINE 50 MG TABLET. PO SCH (08:27)
[2020-10-21] MEDS: ASPIRIN CHEWABLE 81 MG TABLET. PO SCH (08:27)
[2020-10-21] MEDS: METOPROLOL SUCC 24HR ER 25 MG TAB.ER.24H. PO SCH (08:27)
[2020-10-21] MEDS: POTASSIUM CHLORIDE 20 MEQ TABLET.ER. PO SCH (08:27)
[2020-10-21] MEDS: PANTOPRAZOLE 40 MG TABLET. PO SCH ×2 (08:27→19:27)
[2020-10-21] MEDS: FUROSEMIDE 40 MG TABLET PO SCH (08:28)
--- NOTE | 2020-10-21 14:03 | TX PLAN ---
Interdisciplinary Tx Plan Admission Information Oct 13, 2020 at 15:30 Legal Status (on Admission): Voluntary DPOA/Guardian Name: Shante Powell Contact Other Contact Verified Code Status: Full Code Allergies: Coded Allergies: Penicillins (Verified Allergy, Unknown, Hives, 10/11/20) promethazine (Verified Allergy, Unknown, 10/13/20) sulfadiazine (Verified Allergy, Unknown, Nausea, HIVES, 10/11/20) Diagnoses Primary Diagnosis: MDD Reasons for Admission: Depressed, Poor impulse control Problem in Patient's Words: She thinks she is doing okay and she continues to increasingly not make good decisions. Additional Admission Comments: According to the intake, pt had a disagreement with family and threatened SI by swallowing pills; in the hospital, pt was upset by the doctors and "banished" them from her room. Problems Active Problems: Depressed mood Inactive Problems: Medication compliant Pt Strengths/Limitations Ability for [place]: Fair Cognitive Functioning/Ability: Fair Communication Skills/Ability: Good Financial Resources: Fair Insight/Judgement: Poor Intellectual Ability: Fair Physical Health: Poor Social Skills: Fair Stability in School/Work: Poor Verbal Skills: Good Discharge Criteria Discharge Criteria: No need for close observ., Adequate arrangements @DC, Adequate self-care, Improved behavior, Improved mood/thought Preliminary Discharge Plan Preliminary DC Plan: Other Other Arrangements: Family is considering placement at the time of discharge Special Precautions Fall Risk: Low Initial D/C Plan Family is concerned pt is not safe at home and may need placement versus returning home. Identified Discharge Needs: Potential referrals to placement versus community services through [facility] Currently Utilized Resources Currently Utilized Resources/P: Primary Care Physician Identified Problems/Hx/Goals Objectives/Short-Term Goals Short Term Goals: Dec. Symp. Depression, Medication Stabilization, Promote Coping Skill Short Term Goals in Patient's: I don't need to be here. I need to go home because this place makes me more depressed. Interventions/Frequency Staff Interventions/Frequency&: Psychiatrist to assess pt at least 3x per week for medication mgmt. Social Work to assess pt at least 2x per week for indentification of barriers to care and discharge planning. Nursing to assess medication effects, behavioral management and completion of 15 minute checks daily. Encourage participation in group activities (if applicable) or 1:1 engagement based off Activity Dept goal. 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 Education: Pt graduated 12th grade Community Follow-up Primary Care Physician Community Provider/Family Inpu: Pt family believe that pt has beginning stages of Dementia. Pt presents well but is not able to retain information. 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 Currently pt is active with her peers, staff and attends many groups. Pt is eating roughly 75-100% of meals and sleeping on average 7 hours per night. Pt has been alternating use between RW and wheelchair; although she rarely uses either one at home. Pt dtr, Shante and son, Kirit, participated in tx team via phone. It was discussed with pt completion of the SLUMS and scoring an 18/30 that pt presents well but cognitively appears to have deficits. Psychological testing was ordered and will be completed on Saturday 10/21 to further clarify pt cognition and diagnosis. Pt dtr questioned if pt would be returning home. SW explained that it would depend on the diagnosis and whatever pt works out with Medicaid as it was found that pt only has medication coverage; not placement co verage. If pt does come home, SW will aid the family in setting up community services (visiting nurse, social workers, and other resources) to make pt successful. SW will continue to work with pt family on discharge plans once all pieces have been finalized. SHAN VENTURA Oct 21, 2020 14:03
[2020-10-21 16:09] VITALS: BP 141/89
[2020-10-21] MEDS: TEMAZEPAM 7.5 MG CAPSULE PO SCH (19:27)
[2020-10-21] MEDS: GABAPENTIN 300 MG CAPSULE. PO SCH (19:27)
--- NOTE | 2020-10-21 20:53 | PDOC ---
Exam Note: Karl Note: Please also refer to the separate dictated note~for this date of service dictated separately.~Patient seen individually. Discussed the patient with Nursing staff reviewed the chart.~Reviewed interim history and current functioning. Reviewed vital signs,~Labs/ Radiology~and current medications noted below. Continue current treatment with the changes noted in the dictated addendum note Assessment: Vital Signs/I&O: Vital Signs Date Time Temp Pulse Resp B/P (MAP) Pulse Ox O2 Delivery O2 Flow Rate FiO2 10/21/20 16:09 97.9 88 16 141/89 (106) 96 10/21/20 05:28 Room Air I & O 10/20/20 10/20/20 10/21/20 15:00 23:00 07:00 Intake Total 600 ml 600 ml Balance 600 ml 600 ml Labs: Laboratory Tests Test 10/21/20 05:58 White Blood Count 6.1 x10^3/uL (4.0-11.0) Red Blood Count 4.08 x10^6/uL (3.50-5.40) Hemoglobin 12.8 g/dL (12.0-15.5) Hematocrit 38.8 % (36.0-47.0) Mean Corpuscular Volume 95 fL (79-100) Mean Corpuscular Hemoglobin 31 pg (25-35) Mean Corpuscular Hemoglobin Concent 33 g/dL (31-37) Red Cell Distribution Width 15.4 % (11.5-14.5) H Platelet Count 184 x10^3/uL (140-400) Neutrophils (%) (Auto) 55 % (31-73) Lymphocytes (%) (Auto) 27 % (24-48) Monocytes (%) (Auto) 12 % (0-9) H Eosinophils (%) (Auto) 4 % (0-3) H Basophils (%) (Auto) 1 % (0-3) Neutrophils # (Auto) 3.4 x10^3uL (1.8-7.7) Lymphocytes # (Auto) 1.7 x10^3/uL (1.0-4.8) Monocytes # (Auto) 0.7 x10^3/uL (0.0-1.1) Eosinophils # (Auto) 0.3 x10^3/uL (0.0-0.7) Basophils # (Auto) 0.1 x10^3/uL (0.0-0.2) Sodium Level 145 mmol/L (136-145) Potassium Level 3.5 mmol/L (3.5-5.1) Chloride Level 107 mmol/L (98-107) Carbon Dioxide Level 30 mmol/L (21-32) Anion Gap 8 (6-14) Blood Urea Nitrogen 18 mg/dL (7-20) Creatinine 1.3 mg/dL (0.6-1.0) H Estimated GFR (Cockcroft-Gault) 38.9 BUN/Creatinine Ratio 14 (6-20) Glucose Level 100 mg/dL (70-99) H Calcium Level 8.6 mg/dL (8.5-10.1) Total Bilirubin 0.6 mg/dL (0.2-1.0) Aspartate Amino Transferase (AST) 14 U/L (15-37) L Alanine Aminotransferase (ALT) 7 U/L (14-59) L Alkaline Phosphatase 103 U/L (46-116) Total Protein 6.1 g/dL (6.4-8.2) L Albumin 2.9 g/dL (3.4-5.0) L Albumin/Globulin Ratio 0.9 (1.0-1.7) L Current Medications: Meds: Laboratory Tests Test 10/21/20 05:58 White Blood Count 6.1 x10^3/uL Red Blood Count 4.08 x10^6/uL Hemoglobin 12.8 g/dL Hematocrit 38.8 % Mean Corpuscular Volume 95 fL Mean Corpuscular Hemoglobin 31 pg Mean Corpuscular Hemoglobin Concent 33 g/dL Red Cell Distribution Width 15.4 % Platelet Count 184 x10^3/uL Neutrophils (%) (Auto) 55 % Lymphocytes (%) (Auto) 27 % Monocytes (%) (Auto) 12 % Eosinophils (%) (Auto) 4 % Basophils (%) (Auto) 1 % Neutrophils # (Auto) 3.4 x10^3uL Lymphocytes # (Auto) 1.7 x10^3/uL Monocytes # (Auto) 0.7 x10^3/uL Eosinophils # (Auto) 0.3 x10^3/uL Basophils # (Auto) 0.1 x10^3/uL Sodium Level 145 mmol/L Potassium Level 3.5 mmol/L Chloride Level 107 mmol/L Carbon Dioxide Level 30 mmol/L Anion Gap 8 Blood Urea Nitrogen 18 mg/dL Creatinine 1.3 mg/dL Estimated GFR (Cockcroft-Gault) 38.9 BUN/Creatinine Ratio 14 Glucose Level 100 mg/dL Calcium Level 8.6 mg/dL Total Bilirubin 0.6 mg/dL Aspartate Amino Transf (AST/SGOT) 14 U/L Alanine Aminotransferase (ALT/SGPT) 7 U/L Alkaline Phosphatase 103 U/L Total Protein 6.1 g/dL Albumin 2.9 g/dL Albumin/Globulin Ratio 0.9 Current Medications Medications (Trade) Dose Ordered Sig/Estefany Route PRN Reason Start Time Stop Time Status Last Admin Dose Admin Acetaminophen (Tylenol) 650 mg PRN Q6HRS PRN PO MILD PAIN / TEMP > 100.3'F 10/13/20 17:45 10/20/20 08:06 Multi-Ingredient Ointment (Analgesic [place]) 1 lili PRN QID PRN TP MUSCLE PAIN 10/13/20 17:45 Al Hydroxide/Mg Hydroxide (Mylanta Plus Xs) 15 ml PRN AFTMEALHC PRN PO DYSPEPSIA 10/13/20 17:45 Magnesium Hydroxide (Milk Of Magnesia) 2,400 mg PRN QHS PRN PO CONSTIPATION 10/13/20 17:45 Acetaminophen (Tylenol) 650 mg PRN Q6HRS PRN PO pain or fever 10/13/20 18:00 UNV Aspirin (Aspirin Chewable) 81 mg DAILY PO 10/14/20 09:00 10/21/20 08:27 Furosemide (Lasix) 40 mg DAILY PO 10/14/20 09:00 10/21/20 08:28 Gabapentin (Neurontin) 300 mg HS PO 10/13/20 21:00 10/21/20 19:27 Metoprolol Succinate (Toprol Xl) 75 mg DAILY PO 10/14/20 09:00 10/21/20 08:27 Ondansetron HCl (Zofran Odt) 4 mg PRN Q6HRS PRN PO NAUSEA/VOMITING 10/13/20 18:00 Pantoprazole Sodium (Protonix) 40 mg BID PO 10/13/20 21:00 10/21/20 19:27 Potassium Chloride (Klor-Con) 20 meq DAILY PO 10/14/20 09:00 10/21/20 08:27 Sertraline HCl (Zoloft) 50 mg DAILY PO 10/14/20 09:00 10/14/20 10:47 DC 10/14/20 08:14 Sucralfate (Carafate) 1 gm TIDBFRMEAL PO 10/14/20 07:30 10/21/20 16:30 Temazepam (Restoril) 7.5 mg QHS PO 10/13/20 21:00 10/21/20 19:27 Atorvastatin Calcium (Lipitor) 40 mg DAILY PO 10/14/20 09:00 10/21/20 08:27 Sertraline HCl (Zoloft) 75 mg DAILY PO 10/15/20 09:00 10/21/20 11:39 DC 10/21/20 08:27 Sertraline HCl (Zoloft) 100 mg DAILY PO 10/22/20 09:00 I have reviewed the current psychotropics carefully including drug interactions. Risk benefit ratio favors no change other than as noted in my dictated progress note. Diagnosis: Problems: (1) Major depressive disorder, recurrent episode (2) Impulse control disorder, unspecified (3) Anxiety disorder, unspecified SAYRA SALGADO MD Oct 21, 2020 20:53
[2020-10-22 05:50] VITALS: BP 148/83
[2020-10-22] MEDS: SUCRALFATE 1 GM TABLET. PO SCH ×3 (07:55→16:32)
[2020-10-22] MEDS: ATORVASTATIN CALCIUM 20 MG TABLET PO SCH (07:55)
[2020-10-22] MEDS: ASPIRIN CHEWABLE 81 MG TABLET. PO SCH (07:55)
[2020-10-22] MEDS: METOPROLOL SUCC 24HR ER 25 MG TAB.ER.24H. PO SCH (07:55)
[2020-10-22] MEDS: PANTOPRAZOLE 40 MG TABLET. PO SCH ×2 (07:55→19:41)
[2020-10-22] MEDS: FUROSEMIDE 40 MG TABLET PO SCH (07:56)
[2020-10-22] MEDS: POTASSIUM CHLORIDE 20 MEQ TABLET.ER. PO SCH (07:56)
[2020-10-22] MEDS: SERTRALINE 50 MG TABLET. PO SCH (07:57)
--- NOTE | 2020-10-22 08:08 | PDOC ---
Exam Note: Karl Note: This note is a late entry for 10/21/2020 covers elements not covered in my initial note. Subjective: The patient was reviewed in the morning of 10/21/2020 for a treatment team meeting with America Arora, Larissa Solo and Lolly (social human services assistants), Cici, activity therapy and Daphne BALLARD, discussed and reviewed the chart. The patients daughter Cheli and son Kirit attended the conference. We had a lengthy discussion about the patients diagnoses, progress, neuropsychological testing, and plan with Dr. Hancock for next Sunday. Family is wanting the patient to be probably in an assisted living and the patient is wanting to return home to live with her disabled son. We will look for the capacity to make decisions from the neuropsychological testing to help formulate these recommendations. The patient slept 5-3/4 hours previous night. Overall she remains somewhat anxious but pleasant, hyperverbal at times as I met with her in the evening. She is quite obsessed about discharge and I addressed at length with her. The daughter and son had questions about the patients diagnoses, medications and I addressed all this with them. Review of Systems: No CV, , pulmonary, eye, ENT system symptoms on review. Mental Status Exam: The patient is oriented to herself and situation. Speech coherent, rapid at times. Abstraction is fair. Computation is impaired. Language function is intact. Attention span is short. Mood and affect remains somewhat anxious, labile. Laboratory Data: Reviewed. 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 Anxiety disorder unspecified. Impulse control disorder unspecified. Plan: Continue current psychotropics. Increase Zoloft from 75 mg a day to 100 mg a day starting tomorrow. Rest unchanged. Assessment: Vital Signs/I&O: Vital Signs Date Time Temp Pulse Resp B/P (MAP) Pulse Ox O2 Delivery O2 Flow Rate FiO2 10/22/20 07:55 79 148/83 10/22/20 05:50 97.6 18 96 Room Air I & O 10/21/20 10/21/20 10/22/20 15:00 23:00 07:00 Intake Total 720 ml 600 ml Balance 720 ml 600 ml Current Medications: Meds: Current Medications Medications (Trade) Dose Ordered Sig/Estefany Route PRN Reason Start Time Stop Time Status Last Admin Dose Admin Acetaminophen (Tylenol) 650 mg PRN Q6HRS PRN PO MILD PAIN / TEMP > 100.3'F 10/13/20 17:45 10/20/20 08:06 Multi-Ingredient Ointment (Analgesic [place]) 1 lili PRN QID PRN TP MUSCLE PAIN 10/13/20 17:45 Al Hydroxide/Mg Hydroxide (Mylanta Plus Xs) 15 ml PRN AFTMEALHC PRN PO DYSPEPSIA 10/13/20 17:45 Magnesium Hydroxide (Milk Of Magnesia) 2,400 mg PRN QHS PRN PO CONSTIPATION 10/13/20 17:45 Acetaminophen (Tylenol) 650 mg PRN Q6HRS PRN PO pain or fever 10/13/20 18:00 UNV Aspirin (Aspirin Chewable) 81 mg DAILY PO 10/14/20 09:00 10/22/20 07:55 Furosemide (Lasix) 40 mg DAILY PO 10/14/20 09:00 10/22/20 07:56 Gabapentin (Neurontin) 300 mg HS PO 10/13/20 21:00 10/21/20 19:27 Metoprolol Succinate (Toprol Xl) 75 mg DAILY PO 10/14/20 09:00 10/22/20 07:55 Ondansetron HCl (Zofran Odt) 4 mg PRN Q6HRS PRN PO NAUSEA/VOMITING 10/13/20 18:00 Pantoprazole Sodium (Protonix) 40 mg BID PO 10/13/20 21:00 10/22/20 07:55 Potassium Chloride (Klor-Con) 20 meq DAILY PO 10/14/20 09:00 10/22/20 07:56 Sertraline HCl (Zoloft) 50 mg DAILY PO 10/14/20 09:00 10/14/20 10:47 DC 10/14/20 08:14 Sucralfate (Carafate) 1 gm TIDBFRMEAL PO 10/14/20 07:30 10/22/20 07:55 Temazepam (Restoril) 7.5 mg QHS PO 10/13/20 21:00 10/21/20 19:27 Atorvastatin Calcium (Lipitor) 40 mg DAILY PO 10/14/20 09:00 10/22/20 07:55 Sertraline HCl (Zoloft) 75 mg DAILY PO 10/15/20 09:00 10/21/20 11:39 DC 10/21/20 08:27 Sertraline HCl (Zoloft) 100 mg DAILY PO 10/22/20 09:00 10/22/20 07:57 Current Medications Medications (Trade) Dose Ordered Sig/Estefany Route PRN Reason Start Time Stop Time Status Last Admin Dose Admin Sertraline HCl (Zoloft) 100 mg DAILY PO 10/22/20 09:00 10/22/20 07:57 I have reviewed the current psychotropics carefully including drug interactions. Risk benefit ratio favors no change other than as noted in my dictated progress note. Diagnosis: Problems: (1) Major depressive disorder, recurrent episode (2) Impulse control disorder, unspecified (3) Anxiety disorder, unspecified SAYRA SALGADO MD Oct 22, 2020 08:08
[2020-10-22 15:23] VITALS: BP 145/88
[2020-10-22] MEDS: TEMAZEPAM 7.5 MG CAPSULE PO SCH (19:41)
[2020-10-22] MEDS: GABAPENTIN 300 MG CAPSULE. PO SCH (19:41)
--- NOTE | 2020-10-22 20:59 | PDOC ---
Exam Note: Karl Note: Please also refer to the separate dictated note~for this date of service dictated separately.~Patient seen individually. Discussed the patient with Nursing staff reviewed the chart.~Reviewed interim history and current functioning. Reviewed vital signs,~Labs/ Radiology~and current medications noted below. Continue current treatment with the changes noted in the dictated addendum note Assessment: Vital Signs/I&O: Vital Signs Date Time Temp Pulse Resp B/P (MAP) Pulse Ox O2 Delivery O2 Flow Rate FiO2 10/22/20 15:23 98.3 75 18 145/88 (107) 96 Room Air I & O 10/21/20 10/21/20 10/22/20 15:00 23:00 07:00 Intake Total 720 ml 600 ml Balance 720 ml 600 ml Current Medications: Meds: Current Medications Medications (Trade) Dose Ordered Sig/Estefany Route PRN Reason Start Time Stop Time Status Last Admin Dose Admin Sertraline HCl (Zoloft) 100 mg DAILY PO 10/22/20 09:00 10/22/20 07:57 I have reviewed the current psychotropics carefully including drug interactions. Risk benefit ratio favors no change other than as noted in my dictated progress note. Diagnosis: Problems: (1) Major depressive disorder, recurrent episode (2) Impulse control disorder, unspecified (3) Anxiety disorder, unspecified SAYRA SALGADO MD Oct 22, 2020 20:59
[2020-10-23] MEDS: METOPROLOL SUCC 24HR ER 25 MG TAB.ER.24H. PO SCH (05:35)
[2020-10-23 05:59] VITALS: BP 161/86
[2020-10-23] MEDS: POTASSIUM CHLORIDE 20 MEQ TABLET.ER. PO SCH (07:55)
[2020-10-23] MEDS: ASPIRIN CHEWABLE 81 MG TABLET. PO SCH (07:55)
[2020-10-23] MEDS: SERTRALINE 50 MG TABLET. PO SCH (07:55)
[2020-10-23] MEDS: SUCRALFATE 1 GM TABLET. PO SCH ×3 (07:55→16:30)
[2020-10-23] MEDS: PANTOPRAZOLE 40 MG TABLET. PO SCH ×2 (07:55→19:54)
[2020-10-23] MEDS: ATORVASTATIN CALCIUM 20 MG TABLET PO SCH (07:56)
[2020-10-23] MEDS: FUROSEMIDE 40 MG TABLET PO SCH (07:56)
[2020-10-23 15:45] VITALS: BP 138/91
[2020-10-23] MEDS: GABAPENTIN 300 MG CAPSULE. PO SCH (19:54)
[2020-10-23] MEDS: TEMAZEPAM 7.5 MG CAPSULE PO SCH (19:54)
--- NOTE | 2020-10-23 20:49 | PDOC ---
Exam Note: Karl Note: Please also refer to the separate dictated note~for this date of service dictated separately.~Patient seen individually. Discussed the patient with Nursing staff reviewed the chart.~Reviewed interim history and current functioning. Reviewed vital signs,~Labs/ Radiology~and current medications noted below. Continue current treatment with the changes noted in the dictated addendum note Assessment: Vital Signs/I&O: Vital Signs Date Time Temp Pulse Resp B/P (MAP) Pulse Ox O2 Delivery O2 Flow Rate FiO2 10/23/20 15:45 97.6 77 20 138/91 (107) 98 Room Air I & O 10/22/20 10/22/20 10/23/20 15:00 23:00 07:00 Intake Total 685 ml 480 ml Balance 685 ml 480 ml Current Medications: Meds: Current Medications Medications (Trade) Dose Ordered Sig/Estefany Route PRN Reason Start Time Stop Time Status Last Admin Dose Admin Acetaminophen (Tylenol) 650 mg PRN Q6HRS PRN PO MILD PAIN / TEMP > 100.3'F 10/13/20 17:45 10/20/20 08:06 Multi-Ingredient Ointment (Analgesic [place]) 1 lili PRN QID PRN TP MUSCLE PAIN 10/13/20 17:45 Al Hydroxide/Mg Hydroxide (Mylanta Plus Xs) 15 ml PRN AFTMEALHC PRN PO DYSPEPSIA 10/13/20 17:45 Magnesium Hydroxide (Milk Of Magnesia) 2,400 mg PRN QHS PRN PO CONSTIPATION 10/13/20 17:45 Acetaminophen (Tylenol) 650 mg PRN Q6HRS PRN PO pain or fever 10/13/20 18:00 UNV Aspirin (Aspirin Chewable) 81 mg DAILY PO 10/14/20 09:00 10/23/20 07:55 Furosemide (Lasix) 40 mg DAILY PO 10/14/20 09:00 10/23/20 07:56 Gabapentin (Neurontin) 300 mg HS PO 10/13/20 21:00 10/23/20 19:54 Metoprolol Succinate (Toprol Xl) 75 mg DAILY PO 10/14/20 09:00 10/23/20 05:35 Ondansetron HCl (Zofran Odt) 4 mg PRN Q6HRS PRN PO NAUSEA/VOMITING 10/13/20 18:00 Pantoprazole Sodium (Protonix) 40 mg BID PO 10/13/20 21:00 10/23/20 19:54 Potassium Chloride (Klor-Con) 20 meq DAILY PO 10/14/20 09:00 10/23/20 07:55 Sertraline HCl (Zoloft) 50 mg DAILY PO 10/14/20 09:00 10/14/20 10:47 DC 10/14/20 08:14 Sucralfate (Carafate) 1 gm TIDBFRMEAL PO 10/14/20 07:30 10/23/20 16:30 Temazepam (Restoril) 7.5 mg QHS PO 10/13/20 21:00 10/23/20 19:54 Atorvastatin Calcium (Lipitor) 40 mg DAILY PO 10/14/20 09:00 10/23/20 07:56 Sertraline HCl (Zoloft) 75 mg DAILY PO 10/15/20 09:00 10/21/20 11:39 DC 10/21/20 08:27 Sertraline HCl (Zoloft) 100 mg DAILY PO 10/22/20 09:00 10/23/20 07:55 Hydrocortisone (Cortaid) 1 lili BID TP 10/23/20 21:00 Cetirizine HCl (ZyrTEC) 10 mg DAILY PO 10/24/20 09:00 I have reviewed the current psychotropics carefully including drug interactions. Risk benefit ratio favors no change other than as noted in my dictated progress note. Diagnosis: Problems: (1) Major depressive disorder, recurrent episode (2) Impulse control disorder, unspecified (3) Anxiety disorder, unspecified SAYRA SALGADO MD Oct 23, 2020 20:48
[2020-10-23] MEDS: HYDROCORTISONE 1% TOPICAL CREAM 30GM TUBE. TP SCH (21:50)
[2020-10-24 06:09] VITALS: BP 152/96
--- NOTE | 2020-10-24 08:18 | PDOC ---
Exam Note: Karl Note: This note is a late entry for 10/22/2020 covers elements not covered in my initial note. Subjective: The patient was seen individually in the evening of 10/22/2020 with Aurelia BALLARD, discussed and reviewed the chart. The patient slept 6-3/4 hours previous night. She has been obsessing the nursing staff about wanting to be discharged. She minimizes, denies, rationalizes most of the problems prompting admission. I met with her individually at some length in the evening. Review of Systems: No CV, , pulmonary, eye, ENT system symptoms on review. Mental Status Exam: The patient is oriented to herself and situation. She seems slightly less obsessed about discharge plans but was still ruminating about this. We addressed at some length. Speech coherent. Abstraction is fair. Computation is impaired. Language function is intact. Attention span is short. Mood and affect remains anxious. Laboratory Data: Reviewed. 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 Anxiety disorder unspecified. Impulse control disorder unspecified. Plan: Continue current psychotropics. Assessment: Vital Signs/I&O: Vital Signs Date Time Temp Pulse Resp B/P (MAP) Pulse Ox O2 Delivery O2 Flow Rate FiO2 10/24/20 06:09 97.5 77 22 152/96 (114) 95 10/23/20 15:45 Room Air I & O 10/23/20 10/23/20 10/24/20 15:00 23:00 07:00 Intake Total 600 ml 720 ml Balance 600 ml 720 ml Current Medications: Meds: Current Medications Medications (Trade) Dose Ordered Sig/Estefany Route PRN Reason Start Time Stop Time Status Last Admin Dose Admin Hydrocortisone (Cortaid) 1 lili BID TP 10/23/20 21:00 10/23/20 21:50 I have reviewed the current psychotropics carefully including drug interactions. Risk benefit ratio favors no change other than as noted in my dictated progress note. Diagnosis: Problems: (1) Major depressive disorder, recurrent episode (2) Impulse control disorder, unspecified (3) Anxiety disorder, unspecified SAYRA SALGADO MD Oct 24, 2020 08:18
--- NOTE | 2020-10-24 08:32 | PDOC ---
Exam Note: Karl Note: This note is a late entry for 10/23/2020 covers elements not covered in my initial note. Subjective: The patient was seen individually in the evening of 10/23/2020 with Aurelia BALLARD, discussed and reviewed the chart. The patient slept 6 hours previous night. She has been obsessing the nursing staff about wanting to be discharged. I addressed with her individually and she followed me around the unit wanting for me for me to be more specific about discharge plans. She agrees to discuss this with Larissa Solo, social sciences instructor on Sunday. She is complaining of a rash on the lower extremity. She has been started on hydrocortisone ointment to assist with this. Review of Systems: No CV, , pulmonary, eye, ENT system symptoms on review. Mental Status Exam: The patient is oriented to herself and situation. Speech coherent. Abstraction is fair. Computation is impaired. Language function is intact. Attention span is short. Mood and affect remains somewhat anxious, labile. Laboratory Data: Reviewed. 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 Anxiety disorder unspecified. Impulse control disorder unspecified. Plan: Continue current psychotropics. Assessment: Vital Signs/I&O: Vital Signs Date Time Temp Pulse Resp B/P (MAP) Pulse Ox O2 Delivery O2 Flow Rate FiO2 10/24/20 06:09 97.5 77 22 152/96 (114) 95 10/23/20 15:45 Room Air I & O 10/23/20 10/23/20 10/24/20 15:00 23:00 07:00 Intake Total 600 ml 720 ml Balance 600 ml 720 ml Current Medications: Meds: Current Medications Medications (Trade) Dose Ordered Sig/Estefany Route PRN Reason Start Time Stop Time Status Last Admin Dose Admin Acetaminophen (Tylenol) 650 mg PRN Q6HRS PRN PO MILD PAIN / TEMP > 100.3'F 10/13/20 17:45 10/20/20 08:06 Multi-Ingredient Ointment (Analgesic [place]) 1 lili PRN QID PRN TP MUSCLE PAIN 10/13/20 17:45 Al Hydroxide/Mg Hydroxide (Mylanta Plus Xs) 15 ml PRN AFTMEALHC PRN PO DYSPEPSIA 10/13/20 17:45 Magnesium Hydroxide (Milk Of Magnesia) 2,400 mg PRN QHS PRN PO CONSTIPATION 10/13/20 17:45 Acetaminophen (Tylenol) 650 mg PRN Q6HRS PRN PO pain or fever 10/13/20 18:00 UNV Aspirin (Aspirin Chewable) 81 mg DAILY PO 10/14/20 09:00 10/23/20 07:55 Furosemide (Lasix) 40 mg DAILY PO 10/14/20 09:00 10/23/20 07:56 Gabapentin (Neurontin) 300 mg HS PO 10/13/20 21:00 10/23/20 19:54 Metoprolol Succinate (Toprol Xl) 75 mg DAILY PO 10/14/20 09:00 10/23/20 05:35 Ondansetron HCl (Zofran Odt) 4 mg PRN Q6HRS PRN PO NAUSEA/VOMITING 10/13/20 18:00 Pantoprazole Sodium (Protonix) 40 mg BID PO 10/13/20 21:00 10/23/20 19:54 Potassium Chloride (Klor-Con) 20 meq DAILY PO 10/14/20 09:00 10/23/20 07:55 Sertraline HCl (Zoloft) 50 mg DAILY PO 10/14/20 09:00 10/14/20 10:47 DC 10/14/20 08:14 Sucralfate (Carafate) 1 gm TIDBFRMEAL PO 10/14/20 07:30 10/23/20 16:30 Temazepam (Restoril) 7.5 mg QHS PO 10/13/20 21:00 10/23/20 19:54 Atorvastatin Calcium (Lipitor) 40 mg DAILY PO 10/14/20 09:00 10/23/20 07:56 Sertraline HCl (Zoloft) 75 mg DAILY PO 10/15/20 09:00 10/21/20 11:39 DC 10/21/20 08:27 Sertraline HCl (Zoloft) 100 mg DAILY PO 10/22/20 09:00 10/23/20 07:55 Hydrocortisone (Cortaid) 1 lili BID TP 10/23/20 21:00 10/23/20 21:50 Cetirizine HCl (ZyrTEC) 10 mg DAILY PO 10/24/20 09:00 Current Medications Medications (Trade) Dose Ordered Sig/Estefany Route PRN Reason Start Time Stop Time Status Last Admin Dose Admin Hydrocortisone (Cortaid) 1 lili BID TP 10/23/20 21:00 10/23/20 21:50 I have reviewed the current psychotropics carefully including drug interactions. Risk benefit ratio favors no change other than as noted in my dictated progress note. Diagnosis: Problems: (1) Major depressive disorder, recurrent episode (2) Impulse control disorder, unspecified (3) Anxiety disorder, unspecified SAYRA SALGADO MD Oct 24, 2020 08:32
[2020-10-24] MEDS: POTASSIUM CHLORIDE 20 MEQ TABLET.ER. PO SCH (09:24)
[2020-10-24] MEDS: SUCRALFATE 1 GM TABLET. PO SCH ×3 (09:24→17:06)
[2020-10-24] MEDS: ASPIRIN CHEWABLE 81 MG TABLET. PO SCH (09:24)
[2020-10-24] MEDS: FUROSEMIDE 40 MG TABLET PO SCH (09:24)
[2020-10-24] MEDS: SERTRALINE 50 MG TABLET. PO SCH (09:25)
[2020-10-24] MEDS: CETIRIZINE HCL 10 MG TABLET PO SCH (09:25)
[2020-10-24] MEDS: HYDROCORTISONE 1% TOPICAL CREAM 30GM TUBE. TP SCH ×2 (09:25→19:48)
[2020-10-24] MEDS: ATORVASTATIN CALCIUM 20 MG TABLET PO SCH (09:25)
[2020-10-24] MEDS: METOPROLOL SUCC 24HR ER 25 MG TAB.ER.24H. PO SCH (09:25)
[2020-10-24] MEDS: PANTOPRAZOLE 40 MG TABLET. PO SCH ×2 (09:25→19:47)
[2020-10-24 15:42] VITALS: BP 115/83
[2020-10-24] MEDS: GABAPENTIN 300 MG CAPSULE. PO SCH (19:47)
[2020-10-24] MEDS: TEMAZEPAM 7.5 MG CAPSULE PO SCH (19:47)
--- NOTE | 2020-10-24 21:52 | PDOC ---
Exam Note: Karl Note: Please also refer to the separate dictated note~for this date of service dictated separately.~Patient seen individually. Discussed the patient with Nursing staff reviewed the chart.~Reviewed interim history and current functioning. Reviewed vital signs,~Labs/ Radiology~and current medications noted below. Continue current treatment with the changes noted in the dictated addendum note Assessment: Vital Signs/I&O: Vital Signs Date Time Temp Pulse Resp B/P (MAP) Pulse Ox O2 Delivery O2 Flow Rate FiO2 10/24/20 15:42 97.2 83 17 115/83 (94) 96 10/23/20 15:45 Room Air I & O 10/23/20 10/23/20 10/24/20 15:00 23:00 07:00 Intake Total 600 ml 720 ml Balance 600 ml 720 ml Current Medications: Meds: Current Medications Medications (Trade) Dose Ordered Sig/Estefany Route PRN Reason Start Time Stop Time Status Last Admin Dose Admin Cetirizine HCl (ZyrTEC) 10 mg DAILY PO 10/24/20 09:00 10/24/20 09:25 I have reviewed the current psychotropics carefully including drug interactions. Risk benefit ratio favors no change other than as noted in my dictated progress note. Diagnosis: Problems: (1) Major depressive disorder, recurrent episode (2) Impulse control disorder, unspecified (3) Anxiety disorder, unspecified SAYRA SALGADO MD Oct 24, 2020 21:52
[2020-10-25 06:26] VITALS: BP 133/88
[2020-10-25] MEDS: CETIRIZINE HCL 10 MG TABLET PO SCH (08:05)
[2020-10-25] MEDS: SUCRALFATE 1 GM TABLET. PO SCH ×3 (08:05→15:59)
[2020-10-25] MEDS: FUROSEMIDE 40 MG TABLET PO SCH (08:07)
[2020-10-25] MEDS: SERTRALINE 50 MG TABLET. PO SCH (08:07)
[2020-10-25] MEDS: METOPROLOL SUCC 24HR ER 25 MG TAB.ER.24H. PO SCH (08:07)
[2020-10-25] MEDS: ASPIRIN CHEWABLE 81 MG TABLET. PO SCH (08:08)
[2020-10-25] MEDS: ATORVASTATIN CALCIUM 20 MG TABLET PO SCH (08:08)
[2020-10-25] MEDS: PANTOPRAZOLE 40 MG TABLET. PO SCH ×2 (08:09→20:25)
[2020-10-25] MEDS: HYDROCORTISONE 1% TOPICAL CREAM 30GM TUBE. TP SCH ×2 (08:09→20:25)
[2020-10-25] MEDS: POTASSIUM CHLORIDE 20 MEQ TABLET.ER. PO SCH (08:09)
--- NOTE | 2020-10-25 08:39 | PDOC ---
Exam Note: Karl Note: This note is a late entry for 10/24/2020 covers elements not covered in my initial note. Subjective: The patient was seen individually in the evening of 10/24/2020 with Татьяна BALLARD, discussed and reviewed the chart. The patient slept 4-1/2 hours previous night. She was somewhat needy previous evening, done better today. Rash on her leg is better. She is receiving hydrocortisone ointment. Review of Systems: No CV, , pulmonary, eye, ENT system symptoms on review. Mental Status Exam: The patient is oriented to herself and situation. Speech coherent. Abstraction is fair. Computation is impaired. Language function is intact. Attention span is short. Mood and affect remains somewhat anxious, labile. Laboratory Data: Reviewed. 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 Anxiety disorder unspecified. Impulse control disorder unspecified. Plan: Continue current psychotropics. Assessment: Vital Signs/I&O: Vital Signs Date Time Temp Pulse Resp B/P (MAP) Pulse Ox O2 Delivery O2 Flow Rate FiO2 10/25/20 08:07 77 133/88 10/25/20 06:26 97.9 18 95 Room Air I & O 0 10/24/20 10/24/20 10/25/20 15:00 23:00 07:00 Intake Total 720 ml 345 ml Balance 720 ml 345 ml Current Medications: Meds: Current Medications Medications (Trade) Dose Ordered Sig/Estefany Route PRN Reason Start Time Stop Time Status Last Admin Dose Admin Acetaminophen (Tylenol) 650 mg PRN Q6HRS PRN PO MILD PAIN / TEMP > 100.3'F 10/13/20 17:45 10/20/20 08:06 Multi-Ingredient Ointment (Analgesic [place]) 1 lili PRN QID PRN TP MUSCLE PAIN 10/13/20 17:45 Al Hydroxide/Mg Hydroxide (Mylanta Plus Xs) 15 ml PRN AFTMEALHC PRN PO DYSPEPSIA 10/13/20 17:45 Magnesium Hydroxide (Milk Of Magnesia) 2,400 mg PRN QHS PRN PO CONSTIPATION 10/13/20 17:45 Acetaminophen (Tylenol) 650 mg PRN Q6HRS PRN PO pain or fever 10/13/20 18:00 UNV Aspirin (Aspirin Chewable) 81 mg DAILY PO 10/14/20 09:00 10/25/20 08:08 Furosemide (Lasix) 40 mg DAILY PO 10/14/20 09:00 10/25/20 08:07 Gabapentin (Neurontin) 300 mg HS PO 10/13/20 21:00 10/24/20 19:47 Metoprolol Succinate (Toprol Xl) 75 mg DAILY PO 10/14/20 09:00 10/25/20 08:07 Ondansetron HCl (Zofran Odt) 4 mg PRN Q6HRS PRN PO NAUSEA/VOMITING 10/13/20 18:00 Pantoprazole Sodium (Protonix) 40 mg BID PO 10/13/20 21:00 10/25/20 08:09 Potassium Chloride (Klor-Con) 20 meq DAILY PO 10/14/20 09:00 10/25/20 08:09 Sertraline HCl (Zoloft) 50 mg DAILY PO 10/14/20 09:00 10/14/20 10:47 DC 10/14/20 08:14 Sucralfate (Carafate) 1 gm TIDBFRMEAL PO 10/14/20 07:30 10/25/20 08:05 Temazepam (Restoril) 7.5 mg QHS PO 10/13/20 21:00 10/24/20 19:47 Atorvastatin Calcium (Lipitor) 40 mg DAILY PO 10/14/20 09:00 10/25/20 08:08 Sertraline HCl (Zoloft) 75 mg DAILY PO 10/15/20 09:00 10/21/20 11:39 DC 10/21/20 08:27 Sertraline HCl (Zoloft) 100 mg DAILY PO 10/22/20 09:00 10/25/20 08:07 Hydrocortisone (Cortaid) 1 lili BID TP 10/23/20 21:00 10/25/20 08:09 Cetirizine HCl (ZyrTEC) 10 mg DAILY PO 10/24/20 09:00 10/25/20 08:05 Current Medications Medications (Trade) Dose Ordered Sig/Estefany Route PRN Reason Start Time Stop Time Status Last Admin Dose Admin Cetirizine HCl (ZyrTEC) 10 mg DAILY PO 10/24/20 09:00 10/25/20 08:05 I have reviewed the current psychotropics carefully including drug interactions. Risk benefit ratio favors no change other than as noted in my dictated progress note. Diagnosis: Problems: (1) Major depressive disorder, recurrent episode (2) Impulse control disorder, unspecified (3) Anxiety disorder, unspecified SAYRA SALGADO MD Oct 25, 2020 08:39
[2020-10-25 15:26] VITALS: BP 136/90
[2020-10-25] MEDS: GABAPENTIN 300 MG CAPSULE. PO SCH (20:25)
[2020-10-25] MEDS: TEMAZEPAM 7.5 MG CAPSULE PO SCH (20:26)
--- NOTE | 2020-10-25 21:58 | PDOC ---
Exam Note: Karl Note: Please also refer to the separate dictated note~for this date of service dictated separately.~Patient seen individually. Discussed the patient with Nursing staff reviewed the chart.~Reviewed interim history and current functioning. Reviewed vital signs,~Labs/ Radiology~and current medications noted below. Continue current treatment with the changes noted in the dictated addendum note Assessment: Vital Signs/I&O: Vital Signs Date Time Temp Pulse Resp B/P (MAP) Pulse Ox O2 Delivery O2 Flow Rate FiO2 10/25/20 15:26 97.3 81 17 136/90 (105) 95 10/25/20 06:26 Room Air I & O 10/24/20 10/24/20 10/25/20 15:00 23:00 07:00 Intake Total 720 ml 345 ml Balance 720 ml 345 ml Current Medications: Meds: Current Medications Medications (Trade) Dose Ordered Sig/Estefany Route PRN Reason Start Time Stop Time Status Last Admin Dose Admin Acetaminophen (Tylenol) 650 mg PRN Q6HRS PRN PO MILD PAIN / TEMP > 100.3'F 10/13/20 17:45 10/20/20 08:06 Multi-Ingredient Ointment (Analgesic [place]) 1 lili PRN QID PRN TP MUSCLE PAIN 10/13/20 17:45 Al Hydroxide/Mg Hydroxide (Mylanta Plus Xs) 15 ml PRN AFTMEALHC PRN PO DYSPEPSIA 10/13/20 17:45 Magnesium Hydroxide (Milk Of Magnesia) 2,400 mg PRN QHS PRN PO CONSTIPATION 10/13/20 17:45 Acetaminophen (Tylenol) 650 mg PRN Q6HRS PRN PO pain or fever 10/13/20 18:00 UNV Aspirin (Aspirin Chewable) 81 mg DAILY PO 10/14/20 09:00 10/25/20 08:08 Furosemide (Lasix) 40 mg DAILY PO 10/14/20 09:00 10/25/20 08:07 Gabapentin (Neurontin) 300 mg HS PO 10/13/20 21:00 10/25/20 20:25 Metoprolol Succinate (Toprol Xl) 75 mg DAILY PO 10/14/20 09:00 10/25/20 08:07 Ondansetron HCl (Zofran Odt) 4 mg PRN Q6HRS PRN PO NAUSEA/VOMITING 10/13/20 18:00 Pantoprazole Sodium (Protonix) 40 mg BID PO 10/13/20 21:00 10/25/20 20:25 Potassium Chloride (Klor-Con) 20 meq DAILY PO 10/14/20 09:00 10/25/20 08:09 Sertraline HCl (Zoloft) 50 mg DAILY PO 10/14/20 09:00 10/14/20 10:47 DC 10/14/20 08:14 Sucralfate (Carafate) 1 gm TIDBFRMEAL PO 10/14/20 07:30 10/25/20 15:59 Temazepam (Restoril) 7.5 mg QHS PO 10/13/20 21:00 10/25/20 20:26 Atorvastatin Calcium (Lipitor) 40 mg DAILY PO 10/14/20 09:00 10/25/20 08:08 Sertraline HCl (Zoloft) 75 mg DAILY PO 10/15/20 09:00 10/21/20 11:39 DC 10/21/20 08:27 Sertraline HCl (Zoloft) 100 mg DAILY PO 10/22/20 09:00 10/25/20 08:07 Hydrocortisone (Cortaid) 1 lili BID TP 10/23/20 21:00 10/25/20 20:25 Cetirizine HCl (ZyrTEC) 10 mg DAILY PO 10/24/20 09:00 10/25/20 08:05 I have reviewed the current psychotropics carefully including drug interactions. Risk benefit ratio favors no change other than as noted in my dictated progress note. Diagnosis: Problems: (1) Major depressive disorder, recurrent episode (2) Impulse control disorder, unspecified (3) Anxiety disorder, unspecified SAYRA SALGADO MD Oct 25, 2020 21:58
[2020-10-26 05:50] VITALS: BP 159/90
[2020-10-26 07:37] LABS: BASO # 0.1 x10^3/uL (0.0-0.2); BASO % 1 % (0-3); EOS # 0.2 x10^3/uL (0.0-0.7); EOS % 3 % (0-3); HEMATOCRIT 39.4 % (36.0-47.0); HEMOGLOBIN 13.1 g/dL (12.0-15.5); LYMPH # 1.8 x10^3/uL (1.0-4.8); LYMPH % 32 % (24-48); MEAN CORPUSCULAR HEMOGLOBIN 31 pg (25-35); MEAN CORPUSCULAR HGB CONC 33 g/dL (31-37); MEAN CORPUSCULAR VOLUME 94 fL (79-100); MONO # 0.7 x10^3/uL (0.0-1.1); MONO % 13 % (0-9); NEUT # 2.7 x10^3uL (1.8-7.7); NEUT % 50 % (31-73); PLATELET COUNT 220 x10^3/uL (140-400); RED CELL DISTRIBUTION WIDTH 15.3 % (11.5-14.5); WHITE BLOOD COUNT 5.4 x10^3/uL (4.0-11.0)
[2020-10-26] MEDS: ATORVASTATIN CALCIUM 20 MG TABLET PO SCH (07:42)
[2020-10-26] MEDS: ASPIRIN CHEWABLE 81 MG TABLET. PO SCH (07:42)
[2020-10-26] MEDS: PANTOPRAZOLE 40 MG TABLET. PO SCH ×2 (07:42→20:02)
[2020-10-26] MEDS: SERTRALINE 50 MG TABLET. PO SCH (07:42)
[2020-10-26] MEDS: METOPROLOL SUCC 24HR ER 25 MG TAB.ER.24H. PO SCH (07:42)
[2020-10-26] MEDS: POTASSIUM CHLORIDE 20 MEQ TABLET.ER. PO SCH (07:43)
[2020-10-26] MEDS: SUCRALFATE 1 GM TABLET. PO SCH ×3 (07:43→16:30)
[2020-10-26] MEDS: FUROSEMIDE 40 MG TABLET PO SCH (07:43)
[2020-10-26] MEDS: CETIRIZINE HCL 10 MG TABLET PO SCH (07:43)
[2020-10-26 07:47] LABS: ALBUMIN 3.2 g/dL (3.4-5.0); CALCIUM 8.9 mg/dL (8.5-10.1); CREATININE 1.2 mg/dL (0.6-1.0); GFR 42.7; POTASSIUM 3.6 mmol/L (3.5-5.1); TOTAL BILIRUBIN 0.7 mg/dL (0.2-1.0); TOTAL PROTEIN 6.5 g/dL (6.4-8.2)
[2020-10-26] MEDS: HYDROCORTISONE 1% TOPICAL CREAM 30GM TUBE. TP SCH ×2 (09:00→20:02)
--- NOTE | 2020-10-26 10:22 | PDOC ---
Exam Note: Karl Note: This note is a late entry for 10/25/2020 covers elements not covered in my initial note. Subjective: The patient was seen individually in the evening of 10/25/2020 with Татьяна BALLARD, discussed and reviewed the chart. The patient slept 7 hours previous night. She gets somewhat anxious, obsessive in the evenings, specifically with somatic complaints and rash on her lower extremity but on my examination that seems better. She does have some pedal edema. We will defer to Dr. Jamison. Review of Systems: No CV, , pulmonary, eye, ENT system symptoms on review. Mental Status Exam: The patient is oriented to herself and situation. She is verbal, interactive, less obsessed about discharge plans as I met with her in the evening. Speech coherent. Abstraction is fair. Computation is impaired. Language function is intact. Attention span is short. Mood and affect anxious, labile. Laboratory Data: Reviewed. 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 Anxiety disorder unspecified. Impulse control disorder unspecified. Plan: Continue current psychotropics. Assessment: Vital Signs/I&O: Vital Signs Date Time Temp Pulse Resp B/P (MAP) Pulse Ox O2 Delivery O2 Flow Rate FiO2 10/26/20 07:42 83 159/90 10/26/20 05:50 97.2 20 94 Room Air I & O 10/25/20 10/25/20 10/26/20 14:59 22:59 06:59 Intake Total 840 ml 440 ml Balance 840 ml 440 ml Labs: Laboratory Tests Test 10/26/20 06:47 White Blood Count 5.4 x10^3/uL (4.0-11.0) Red Blood Count 4.20 x10^6/uL (3.50-5.40) Hemoglobin 13.1 g/dL (12.0-15.5) Hematocrit 39.4 % (36.0-47.0) Mean Corpuscular Volume 94 fL (79-100) Mean Corpuscular Hemoglobin 31 pg (25-35) Mean Corpuscular Hemoglobin Concent 33 g/dL (31-37) Red Cell Distribution Width 15.3 % (11.5-14.5) H Platelet Count 220 x10^3/uL (140-400) Neutrophils (%) (Auto) 50 % (31-73) Lymphocytes (%) (Auto) 32 % (24-48) Monocytes (%) (Auto) 13 % (0-9) H Eosinophils (%) (Auto) 3 % (0-3) Basophils (%) (Auto) 1 % (0-3) Neutrophils # (Auto) 2.7 x10^3uL (1.8-7.7) Lymphocytes # (Auto) 1.8 x10^3/uL (1.0-4.8) Monocytes # (Auto) 0.7 x10^3/uL (0.0-1.1) Eosinophils # (Auto) 0.2 x10^3/uL (0.0-0.7) Basophils # (Auto) 0.1 x10^3/uL (0.0-0.2) Sodium Level 146 mmol/L (136-145) H Potassium Level 3.6 mmol/L (3.5-5.1) Chloride Level 108 mmol/L (98-107) H Carbon Dioxide Level 26 mmol/L (21-32) Anion Gap 12 (6-14) Blood Urea Nitrogen 14 mg/dL (7-20) Creatinine 1.2 mg/dL (0.6-1.0) H Estimated GFR (Cockcroft-Gault) 42.7 BUN/Creatinine Ratio 12 (6-20) Glucose Level 114 mg/dL (70-99) H Calcium Level 8.9 mg/dL (8.5-10.1) Total Bilirubin 0.7 mg/dL (0.2-1.0) Aspartate Amino Transferase (AST) 13 U/L (15-37) L Alanine Aminotransferase (ALT) 17 U/L (14-59) Alkaline Phosphatase 121 U/L (46-116) H Total Protein 6.5 g/dL (6.4-8.2) Albumin 3.2 g/dL (3.4-5.0) L Albumin/Globulin Ratio 1.0 (1.0-1.7) Current Medications: Meds: Laboratory Tests Test 10/26/20 06:47 White Blood Count 5.4 x10^3/uL Red Blood Count 4.20 x10^6/uL Hemoglobin 13.1 g/dL Hematocrit 39.4 % Mean Corpuscular Volume 94 fL Mean Corpuscular Hemoglobin 31 pg Mean Corpuscular Hemoglobin Concent 33 g/dL Red Cell Distribution Width 15.3 % Platelet Count 220 x10^3/uL Neutrophils (%) (Auto) 50 % Lymphocytes (%) (Auto) 32 % Monocytes (%) (Auto) 13 % Eosinophils (%) (Auto) 3 % Basophils (%) (Auto) 1 % Neutrophils # (Auto) 2.7 x10^3uL Lymphocytes # (Auto) 1.8 x10^3/uL Monocytes # (Auto) 0.7 x10^3/uL Eosinophils # (Auto) 0.2 x10^3/uL Basophils # (Auto) 0.1 x10^3/uL Sodium Level 146 mmol/L Potassium Level 3.6 mmol/L Chloride Level 108 mmol/L Carbon Dioxide Level 26 mmol/L Anion Gap 12 Blood Urea Nitrogen 14 mg/dL Creatinine 1.2 mg/dL Estimated GFR (Cockcroft-Gault) 42.7 BUN/Creatinine Ratio 12 Glucose Level 114 mg/dL Calcium Level 8.9 mg/dL Total Bilirubin 0.7 mg/dL Aspartate Amino Transf (AST/SGOT) 13 U/L Alanine Aminotransferase (ALT/SGPT) 17 U/L Alkaline Phosphatase 121 U/L Total Protein 6.5 g/dL Albumin 3.2 g/dL Albumin/Globulin Ratio 1.0 Current Medications Medications (Trade) Dose Ordered Sig/Estefany Route PRN Reason Start Time Stop Time Status Last Admin Dose Admin Acetaminophen (Tylenol) 650 mg PRN Q6HRS PRN PO MILD PAIN / TEMP > 100.3'F 10/13/20 17:45 10/20/20 08:06 Multi-Ingredient Ointment (Analgesic [place]) 1 lili PRN QID PRN TP MUSCLE PAIN 10/13/20 17:45 Al Hydroxide/Mg Hydroxide (Mylanta Plus Xs) 15 ml PRN AFTMEALHC PRN PO DYSPEPSIA 10/13/20 17:45 Magnesium Hydroxide (Milk Of Magnesia) 2,400 mg PRN QHS PRN PO CONSTIPATION 10/13/20 17:45 Acetaminophen (Tylenol) 650 mg PRN Q6HRS PRN PO pain or fever 10/13/20 18:00 UNV Aspirin (Aspirin Chewable) 81 mg DAILY PO 10/14/20 09:00 10/26/20 07:42 Furosemide (Lasix) 40 mg DAILY PO 10/14/20 09:00 10/26/20 07:43 Gabapentin (Neurontin) 300 mg HS PO 10/13/20 21:00 10/25/20 20:25 Metoprolol Succinate (Toprol Xl) 75 mg DAILY PO 10/14/20 09:00 10/26/20 07:42 Ondansetron HCl (Zofran Odt) 4 mg PRN Q6HRS PRN PO NAUSEA/VOMITING 10/13/20 18:00 Pantoprazole Sodium (Protonix) 40 mg BID PO 10/13/20 21:00 10/26/20 07:42 Potassium Chloride (Klor-Con) 20 meq DAILY PO 10/14/20 09:00 10/26/20 07:43 Sertraline HCl (Zoloft) 50 mg DAILY PO 10/14/20 09:00 10/14/20 10:47 DC 10/14/20 08:14 Sucralfate (Carafate) 1 gm TIDBFRMEAL PO 10/14/20 07:30 10/26/20 07:43 Temazepam (Restoril) 7.5 mg QHS PO 10/13/20 21:00 10/25/20 20:26 Atorvastatin Calcium (Lipitor) 40 mg DAILY PO 10/14/20 09:00 10/26/20 07:42 Sertraline HCl (Zoloft) 75 mg DAILY PO 10/15/20 09:00 10/21/20 11:39 DC 10/21/20 08:27 Sertraline HCl (Zoloft) 100 mg DAILY PO 10/22/20 09:00 10/26/20 07:42 Hydrocortisone (Cortaid) 1 lili BID TP 10/23/20 21:00 10/26/20 09:00 Cetirizine HCl (ZyrTEC) 10 mg DAILY PO 10/24/20 09:00 10/26/20 07:43 I have reviewed the current psychotropics carefully including drug interactions. Risk benefit ratio favors no change other than as noted in my dictated progress note. Diagnosis: Problems: (1) Major depressive disorder, recurrent episode (2) Impulse control disorder, unspecified (3) Anxiety disorder, unspecified SAYRA SALGADO MD Oct 26, 2020 10:22
[2020-10-26 16:14] VITALS: BP 137/84
[2020-10-26] MEDS: TEMAZEPAM 7.5 MG CAPSULE PO SCH (20:02)
[2020-10-26] MEDS: GABAPENTIN 300 MG CAPSULE. PO SCH (20:02)
--- NOTE | 2020-10-26 21:50 | PDOC ---
Exam Note: Karl Note: Please also refer to the separate dictated note~for this date of service dictated separately.~Patient seen individually. Discussed the patient with Nursing staff reviewed the chart.~Reviewed interim history and current functioning. Reviewed vital signs,~Labs/ Radiology~and current medications noted below. Continue current treatment with the changes noted in the dictated addendum note Assessment: Vital Signs/I&O: Vital Signs Date Time Temp Pulse Resp B/P (MAP) Pulse Ox O2 Delivery O2 Flow Rate FiO2 10/26/20 16:14 97.0 66 18 137/84 (101) 96 10/26/20 05:50 Room Air I & O 10/25/20 10/25/20 10/26/20 15:00 23:00 07:00 Intake Total 840 ml 440 ml Balance 840 ml 440 ml Labs: Laboratory Tests Test 10/26/20 06:47 White Blood Count 5.4 x10^3/uL (4.0-11.0) Red Blood Count 4.20 x10^6/uL (3.50-5.40) Hemoglobin 13.1 g/dL (12.0-15.5) Hematocrit 39.4 % (36.0-47.0) Mean Corpuscular Volume 94 fL (79-100) Mean Corpuscular Hemoglobin 31 pg (25-35) Mean Corpuscular Hemoglobin Concent 33 g/dL (31-37) Red Cell Distribution Width 15.3 % (11.5-14.5) H Platelet Count 220 x10^3/uL (140-400) Neutrophils (%) (Auto) 50 % (31-73) Lymphocytes (%) (Auto) 32 % (24-48) Monocytes (%) (Auto) 13 % (0-9) H Eosinophils (%) (Auto) 3 % (0-3) Basophils (%) (Auto) 1 % (0-3) Neutrophils # (Auto) 2.7 x10^3uL (1.8-7.7) Lymphocytes # (Auto) 1.8 x10^3/uL (1.0-4.8) Monocytes # (Auto) 0.7 x10^3/uL (0.0-1.1) Eosinophils # (Auto) 0.2 x10^3/uL (0.0-0.7) Basophils # (Auto) 0.1 x10^3/uL (0.0-0.2) Sodium Level 146 mmol/L (136-145) H Potassium Level 3.6 mmol/L (3.5-5.1) Chloride Level 108 mmol/L (98-107) H Carbon Dioxide Level 26 mmol/L (21-32) Anion Gap 12 (6-14) Blood Urea Nitrogen 14 mg/dL (7-20) Creatinine 1.2 mg/dL (0.6-1.0) H Estimated GFR (Cockcroft-Gault) 42.7 BUN/Creatinine Ratio 12 (6-20) Glucose Level 114 mg/dL (70-99) H Calcium Level 8.9 mg/dL (8.5-10.1) Total Bilirubin 0.7 mg/dL (0.2-1.0) Aspartate Amino Transferase (AST) 13 U/L (15-37) L Alanine Aminotransferase (ALT) 17 U/L (14-59) Alkaline Phosphatase 121 U/L (46-116) H Total Protein 6.5 g/dL (6.4-8.2) Albumin 3.2 g/dL (3.4-5.0) L Albumin/Globulin Ratio 1.0 (1.0-1.7) Current Medications: Meds: Laboratory Tests Test 10/26/20 06:47 White Blood Count 5.4 x10^3/uL Red Blood Count 4.20 x10^6/uL Hemoglobin 13.1 g/dL Hematocrit 39.4 % Mean Corpuscular Volume 94 fL Mean Corpuscular Hemoglobin 31 pg Mean Corpuscular Hemoglobin Concent 33 g/dL Red Cell Distribution Width 15.3 % Platelet Count 220 x10^3/uL Neutrophils (%) (Auto) 50 % Lymphocytes (%) (Auto) 32 % Monocytes (%) (Auto) 13 % Eosinophils (%) (Auto) 3 % Basophils (%) (Auto) 1 % Neutrophils # (Auto) 2.7 x10^3uL Lymphocytes # (Auto) 1.8 x10^3/uL Monocytes # (Auto) 0.7 x10^3/uL Eosinophils # (Auto) 0.2 x10^3/uL Basophils # (Auto) 0.1 x10^3/uL Sodium Level 146 mmol/L Potassium Level 3.6 mmol/L Chloride Level 108 mmol/L Carbon Dioxide Level 26 mmol/L Anion Gap 12 Blood Urea Nitrogen 14 mg/dL Creatinine 1.2 mg/dL Estimated GFR (Cockcroft-Gault) 42.7 BUN/Creatinine Ratio 12 Glucose Level 114 mg/dL Calcium Level 8.9 mg/dL Total Bilirubin 0.7 mg/dL Aspartate Amino Transf (AST/SGOT) 13 U/L Alanine Aminotransferase (ALT/SGPT) 17 U/L Alkaline Phosphatase 121 U/L Total Protein 6.5 g/dL Albumin 3.2 g/dL Albumin/Globulin Ratio 1.0 Current Medications Medications (Trade) Dose Ordered Sig/Estefany Route PRN Reason Start Time Stop Time Status Last Admin Dose Admin Acetaminophen (Tylenol) 650 mg PRN Q6HRS PRN PO MILD PAIN / TEMP > 100.3'F 10/13/20 17:45 10/20/20 08:06 Multi-Ingredient Ointment (Analgesic [place]) 1 lili PRN QID PRN TP MUSCLE PAIN 10/13/20 17:45 Al Hydroxide/Mg Hydroxide (Mylanta Plus Xs) 15 ml PRN AFTMEALHC PRN PO DYSPEPSIA 10/13/20 17:45 Magnesium Hydroxide (Milk Of Magnesia) 2,400 mg PRN QHS PRN PO CONSTIPATION 10/13/20 17:45 Acetaminophen (Tylenol) 650 mg PRN Q6HRS PRN PO pain or fever 10/13/20 18:00 UNV Aspirin (Aspirin Chewable) 81 mg DAILY PO 10/14/20 09:00 10/26/20 07:42 Furosemide (Lasix) 40 mg DAILY PO 10/14/20 09:00 10/26/20 07:43 Gabapentin (Neurontin) 300 mg HS PO 10/13/20 21:00 10/26/20 20:02 Metoprolol Succinate (Toprol Xl) 75 mg DAILY PO 10/14/20 09:00 10/26/20 07:42 Ondansetron HCl (Zofran Odt) 4 mg PRN Q6HRS PRN PO NAUSEA/VOMITING 10/13/20 18:00 Pantoprazole Sodium (Protonix) 40 mg BID PO 10/13/20 21:00 10/26/20 20:02 Potassium Chloride (Klor-Con) 20 meq DAILY PO 10/14/20 09:00 10/26/20 07:43 Sertraline HCl (Zoloft) 50 mg DAILY PO 10/14/20 09:00 10/14/20 10:47 DC 10/14/20 08:14 Sucralfate (Carafate) 1 gm TIDBFRMEAL PO 10/14/20 07:30 10/26/20 16:30 Temazepam (Restoril) 7.5 mg QHS PO 10/13/20 21:00 10/26/20 20:02 Atorvastatin Calcium (Lipitor) 40 mg DAILY PO 10/14/20 09:00 10/26/20 07:42 Sertraline HCl (Zoloft) 75 mg DAILY PO 10/15/20 09:00 10/21/20 11:39 DC 10/21/20 08:27 Sertraline HCl (Zoloft) 100 mg DAILY PO 10/22/20 09:00 10/26/20 07:42 Hydrocortisone (Cortaid) 1 lili BID TP 10/23/20 21:00 10/26/20 20:02 Cetirizine HCl (ZyrTEC) 10 mg DAILY PO 10/24/20 09:00 10/26/20 07:43 I have reviewed the current psychotropics carefully including drug interactions. Risk benefit ratio favors no change other than as noted in my dictated progress note. Diagnosis: Problems: (1) Major depressive disorder, recurrent episode (2) Impulse control disorder, unspecified (3) Anxiety disorder, unspecified SAYRA ASLGADO MD Oct 26, 2020 21:50
[2020-10-27 05:46] VITALS: BP 132/84
[2020-10-27] MEDS: SERTRALINE 50 MG TABLET. PO SCH (07:47)
[2020-10-27] MEDS: ATORVASTATIN CALCIUM 20 MG TABLET PO SCH (07:47)
[2020-10-27] MEDS: CETIRIZINE HCL 10 MG TABLET PO SCH (07:47)
[2020-10-27] MEDS: SUCRALFATE 1 GM TABLET. PO SCH ×3 (07:47→16:30)
[2020-10-27] MEDS: ASPIRIN CHEWABLE 81 MG TABLET. PO SCH (07:48)
[2020-10-27] MEDS: POTASSIUM CHLORIDE 20 MEQ TABLET.ER. PO SCH (07:48)
[2020-10-27] MEDS: FUROSEMIDE 40 MG TABLET PO SCH (07:48)
[2020-10-27] MEDS: PANTOPRAZOLE 40 MG TABLET. PO SCH ×2 (07:48→20:35)
[2020-10-27] MEDS: METOPROLOL SUCC 24HR ER 25 MG TAB.ER.24H. PO SCH (07:48)
[2020-10-27] MEDS: HYDROCORTISONE 1% TOPICAL CREAM 30GM TUBE. TP SCH ×2 (07:49→20:41)
--- NOTE | 2020-10-27 08:51 | PDOC ---
Exam Note: Karl Note: This note is a late entry for 10/26/2020 covers elements not covered in my initial note. Subjective: The patient was seen individually in the evening of 10/26/2020 with Mary Carmen BALLARD, discussed and reviewed the chart. The patient slept 7 hours previous night. I met with her on 2 separate occasions this evening on rounds. She has been somewhat anxious, upset having her roommate. She still has some somatic preoccupation with rash on her lower extremities but this is better. She is less obsessed about discharge. Review of Systems: No CV, , pulmonary, eye, ENT system symptoms on review. Mental Status Exam: The patient is oriented to herself and situation. She was not obsessing about discharge plans but has concerns about pedal edema. We will defer to Dr. Jamison. Speech coherent. Abstraction is fair. Computation is impaired. Language function is intact. Attention span is short. Mood and affect anxious, labile. Laboratory Data: Reviewed. 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 Anxiety disorder unspecified. Impulse control disorder unspecified. Plan: Continue current psychotropics. Assessment: Vital Signs/I&O: Vital Signs Date Time Temp Pulse Resp B/P (MAP) Pulse Ox O2 Delivery O2 Flow Rate FiO2 10/27/20 07:48 71 132/84 10/27/20 05:46 97.2 16 96 10/26/20 05:50 Room Air I & O 10/26/20 10/26/20 10/27/20 15:00 23:00 07:00 Intake Total 720 ml 600 ml Balance 720 ml 600 ml Current Medications: Meds: Current Medications Medications (Trade) Dose Ordered Sig/Estefany Route PRN Reason Start Time Stop Time Status Last Admin Dose Admin Acetaminophen (Tylenol) 650 mg PRN Q6HRS PRN PO MILD PAIN / TEMP > 100.3'F 10/13/20 17:45 10/20/20 08:06 Multi-Ingredient Ointment (Analgesic [place]) 1 lili PRN QID PRN TP MUSCLE PAIN 10/13/20 17:45 Al Hydroxide/Mg Hydroxide (Mylanta Plus Xs) 15 ml PRN AFTMEALHC PRN PO DYSPEPSIA 10/13/20 17:45 Magnesium Hydroxide (Milk Of Magnesia) 2,400 mg PRN QHS PRN PO CONSTIPATION 10/13/20 17:45 Acetaminophen (Tylenol) 650 mg PRN Q6HRS PRN PO pain or fever 10/13/20 18:00 UNV Aspirin (Aspirin Chewable) 81 mg DAILY PO 10/14/20 09:00 10/27/20 07:48 Furosemide (Lasix) 40 mg DAILY PO 10/14/20 09:00 10/27/20 07:48 Gabapentin (Neurontin) 300 mg HS PO 10/13/20 21:00 10/26/20 20:02 Metoprolol Succinate (Toprol Xl) 75 mg DAILY PO 10/14/20 09:00 10/27/20 07:48 Ondansetron HCl (Zofran Odt) 4 mg PRN Q6HRS PRN PO NAUSEA/VOMITING 10/13/20 18:00 Pantoprazole Sodium (Protonix) 40 mg BID PO 10/13/20 21:00 10/27/20 07:48 Potassium Chloride (Klor-Con) 20 meq DAILY PO 10/14/20 09:00 10/27/20 07:48 Sertraline HCl (Zoloft) 50 mg DAILY PO 10/14/20 09:00 10/14/20 10:47 DC 10/14/20 08:14 Sucralfate (Carafate) 1 gm TIDBFRMEAL PO 10/14/20 07:30 10/27/20 07:47 Temazepam (Restoril) 7.5 mg QHS PO 10/13/20 21:00 10/26/20 20:02 Atorvastatin Calcium (Lipitor) 40 mg DAILY PO 10/14/20 09:00 10/27/20 07:47 Sertraline HCl (Zoloft) 75 mg DAILY PO 10/15/20 09:00 10/21/20 11:39 DC 10/21/20 08:27 Sertraline HCl (Zoloft) 100 mg DAILY PO 10/22/20 09:00 10/27/20 07:47 Hydrocortisone (Cortaid) 1 lili BID TP 10/23/20 21:00 10/27/20 07:49 Cetirizine HCl (ZyrTEC) 10 mg DAILY PO 10/24/20 09:00 10/27/20 07:47 I have reviewed the current psychotropics carefully including drug interactions. Risk benefit ratio favors no change other than as noted in my dictated progress note. Diagnosis: Problems: (1) Major depressive disorder, recurrent episode (2) Impulse control disorder, unspecified (3) Anxiety disorder, unspecified SAYRA SALGADO MD Oct 27, 2020 08:51
[2020-10-27 15:47] VITALS: BP 139/82
[2020-10-27] MEDS: GABAPENTIN 300 MG CAPSULE. PO SCH (20:35)
[2020-10-27] MEDS: TEMAZEPAM 7.5 MG CAPSULE PO SCH (20:41)
--- NOTE | 2020-10-27 22:03 | PDOC ---
Exam Note: Karl Note: Please also refer to the separate dictated note~for this date of service dictated separately.~Patient seen individually. Discussed the patient with Nursing staff reviewed the chart.~Reviewed interim history and current functioning. Reviewed vital signs,~Labs/ Radiology~and current medications noted below. Continue current treatment with the changes noted in the dictated addendum note Assessment: Vital Signs/I&O: Vital Signs Date Time Temp Pulse Resp B/P (MAP) Pulse Ox O2 Delivery O2 Flow Rate FiO2 10/27/20 15:47 97.1 85 18 139/82 (101) 96 Room Air I & O 10/26/20 10/26/20 10/27/20 15:00 23:00 07:00 Intake Total 720 ml 600 ml Balance 720 ml 600 ml Current Medications: Meds: Current Medications Medications (Trade) Dose Ordered Sig/Estefany Route PRN Reason Start Time Stop Time Status Last Admin Dose Admin Acetaminophen (Tylenol) 650 mg PRN Q6HRS PRN PO MILD PAIN / TEMP > 100.3'F 10/13/20 17:45 10/20/20 08:06 Multi-Ingredient Ointment (Analgesic [place]) 1 lili PRN QID PRN TP MUSCLE PAIN 10/13/20 17:45 Al Hydroxide/Mg Hydroxide (Mylanta Plus Xs) 15 ml PRN AFTMEALHC PRN PO DYSPEPSIA 10/13/20 17:45 Magnesium Hydroxide (Milk Of Magnesia) 2,400 mg PRN QHS PRN PO CONSTIPATION 10/13/20 17:45 Acetaminophen (Tylenol) 650 mg PRN Q6HRS PRN PO pain or fever 10/13/20 18:00 UNV Aspirin (Aspirin Chewable) 81 mg DAILY PO 10/14/20 09:00 10/27/20 07:48 Furosemide (Lasix) 40 mg DAILY PO 10/14/20 09:00 10/27/20 07:48 Gabapentin (Neurontin) 300 mg HS PO 10/13/20 21:00 10/27/20 20:35 Metoprolol Succinate (Toprol Xl) 75 mg DAILY PO 10/14/20 09:00 10/27/20 07:48 Ondansetron HCl (Zofran Odt) 4 mg PRN Q6HRS PRN PO NAUSEA/VOMITING 10/13/20 18:00 Pantoprazole Sodium (Protonix) 40 mg BID PO 10/13/20 21:00 10/27/20 20:35 Potassium Chloride (Klor-Con) 20 meq DAILY PO 10/14/20 09:00 10/27/20 07:48 Sertraline HCl (Zoloft) 50 mg DAILY PO 10/14/20 09:00 10/14/20 10:47 DC 10/14/20 08:14 Sucralfate (Carafate) 1 gm TIDBFRMEAL PO 10/14/20 07:30 10/27/20 16:30 Temazepam (Restoril) 7.5 mg QHS PO 10/13/20 21:00 10/27/20 20:41 Atorvastatin Calcium (Lipitor) 40 mg DAILY PO 10/14/20 09:00 10/27/20 07:47 Sertraline HCl (Zoloft) 75 mg DAILY PO 10/15/20 09:00 10/21/20 11:39 DC 10/21/20 08:27 Sertraline HCl (Zoloft) 100 mg DAILY PO 10/22/20 09:00 10/27/20 07:47 Hydrocortisone (Cortaid) 1 lili BID TP 10/23/20 21:00 10/27/20 20:41 Cetirizine HCl (ZyrTEC) 10 mg DAILY PO 10/24/20 09:00 10/27/20 07:47 I have reviewed the current psychotropics carefully including drug interactions. Risk benefit ratio favors no change other than as noted in my dictated progress note. Diagnosis: Problems: (1) Major depressive disorder, recurrent episode (2) Impulse control disorder, unspecified (3) Anxiety disorder, unspecified SAYRA SALGADO MD Oct 27, 2020 22:03
[2020-10-28 05:29] VITALS: BP 139/85
--- NOTE | 2020-10-28 08:23 | PDOC ---
Exam Note: Karl Note: This note is a late entry for 10/27/2020 covers elements not covered in my initial note. Subjective: The patient was seen individually in the evening of 10/27/2020 with Daphne BALLARD, discussed and reviewed the chart. The patient slept 7 hours previous night. Overall the patient is doing reasonably well. She is less anxious, obsessive, still somewhat fixated on discharge plans and I addressed this with her. Review of Systems: No CV, , pulmonary, eye, ENT system symptoms on review. Mental Status Exam: The patient is oriented to herself and situation. Speech c oherent. Abstraction is fair. Computation is impaired. Language function is intact. Attention span is short. Mood and affect anxious. Laboratory Data: Reviewed. 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 Anxiety disorder unspecified. Impulse control disorder unspecified. Plan: Continue current psychotropics. Assessment: Vital Signs/I&O: Vital Signs Date Time Temp Pulse Resp B/P (MAP) Pulse Ox O2 Delivery O2 Flow Rate FiO2 10/28/20 05:29 97.5 82 16 139/85 (103) 95 10/27/20 15:47 Room Air I & O 10/27/20 10/27/20 10/28/20 15:00 23:00 07:00 Intake Total 600 ml 480 ml Balance 600 ml 480 ml Current Medications: Meds: Current Medications Medications (Trade) Dose Ordered Sig/Estefany Route PRN Reason Start Time Stop Time Status Last Admin Dose Admin Acetaminophen (Tylenol) 650 mg PRN Q6HRS PRN PO MILD PAIN / TEMP > 100.3'F 10/13/20 17:45 10/20/20 08:06 Multi-Ingredient Ointment (Analgesic [place]) 1 lili PRN QID PRN TP MUSCLE PAIN 10/13/20 17:45 Al Hydroxide/Mg Hydroxide (Mylanta Plus Xs) 15 ml PRN AFTMEALHC PRN PO DYSPEPSIA 10/13/20 17:45 Magnesium Hydroxide (Milk Of Magnesia) 2,400 mg PRN QHS PRN PO CONSTIPATION 10/13/20 17:45 Acetaminophen (Tylenol) 650 mg PRN Q6HRS PRN PO pain or fever 10/13/20 18:00 UNV Aspirin (Aspirin Chewable) 81 mg DAILY PO 10/14/20 09:00 10/27/20 07:48 Furosemide (Lasix) 40 mg DAILY PO 10/14/20 09:00 10/27/20 07:48 Gabapentin (Neurontin) 300 mg HS PO 10/13/20 21:00 10/27/20 20:35 Metoprolol Succinate (Toprol Xl) 75 mg DAILY PO 10/14/20 09:00 10/27/20 07:48 Ondansetron HCl (Zofran Odt) 4 mg PRN Q6HRS PRN PO NAUSEA/VOMITING 10/13/20 18:00 Pantoprazole Sodium (Protonix) 40 mg BID PO 10/13/20 21:00 10/27/20 20:35 Potassium Chloride (Klor-Con) 20 meq DAILY PO 10/14/20 09:00 10/27/20 07:48 Sertraline HCl (Zoloft) 50 mg DAILY PO 10/14/20 09:00 10/14/20 10:47 DC 10/14/20 08:14 Sucralfate (Carafate) 1 gm TIDBFRMEAL PO 10/14/20 07:30 10/27/20 16:30 Temazepam (Restoril) 7.5 mg QHS PO 10/13/20 21:00 10/27/20 20:41 Atorvastatin Calcium (Lipitor) 40 mg DAILY PO 10/14/20 09:00 10/27/20 07:47 Sertraline HCl (Zoloft) 75 mg DAILY PO 10/15/20 09:00 10/21/20 11:39 DC 10/21/20 08:27 Sertraline HCl (Zoloft) 100 mg DAILY PO 10/22/20 09:00 10/27/20 07:47 Hydrocortisone (Cortaid) 1 lili BID TP 10/23/20 21:00 10/27/20 20:41 Cetirizine HCl (ZyrTEC) 10 mg DAILY PO 10/24/20 09:00 10/27/20 07:47 I have reviewed the current psychotropics carefully including drug interactions. Risk benefit ratio favors no change other than as noted in my dictated progress note. Diagnosis: Problems: (1) Major depressive disorder, recurrent episode (2) Impulse control disorder, unspecified (3) Anxiety disorder, unspecified SAYRA SALGADO MD Oct 28, 2020 08:23
[2020-10-28] MEDS: SUCRALFATE 1 GM TABLET. PO SCH ×3 (08:25→17:21)
[2020-10-28] MEDS: ATORVASTATIN CALCIUM 20 MG TABLET PO SCH (08:25)
[2020-10-28] MEDS: SERTRALINE 50 MG TABLET. PO SCH (08:25)
[2020-10-28] MEDS: POTASSIUM CHLORIDE 20 MEQ TABLET.ER. PO SCH (08:26)
[2020-10-28] MEDS: CETIRIZINE HCL 10 MG TABLET PO SCH (08:26)
[2020-10-28] MEDS: ASPIRIN CHEWABLE 81 MG TABLET. PO SCH (08:26)
[2020-10-28] MEDS: METOPROLOL SUCC 24HR ER 25 MG TAB.ER.24H. PO SCH (08:26)
[2020-10-28] MEDS: FUROSEMIDE 40 MG TABLET PO SCH (08:26)
[2020-10-28] MEDS: PANTOPRAZOLE 40 MG TABLET. PO SCH ×2 (08:26→19:43)
[2020-10-28] MEDS: HYDROCORTISONE 1% TOPICAL CREAM 30GM TUBE. TP SCH ×2 (08:27→19:43)
--- NOTE | 2020-10-28 13:53 | TX PLAN ---
Interdisciplinary Tx Plan Admission Information Oct 13, 2020 at 15:30 Legal Status (on Admission): Voluntary DPOA/Guardian Name: Shante Powell Contact Other Contact Verified Code Status: Full Code Allergies: Coded Allergies: Penicillins (Verified Allergy, Unknown, Hives, 10/11/20) promethazine (Verified Allergy, Unknown, 10/13/20) sulfadiazine (Verified Allergy, Unknown, Nausea, HIVES, 10/11/20) Diagnoses Primary Diagnosis: MDD Reasons for Admission: Depressed, Poor impulse control Problem in Patient's Words: She thinks she is doing okay and she continues to increasingly not make good decisions. Additional Admission Comments: According to the intake, pt had a disagreement with family and threatened SI by swallowing pills; in the hospital, pt was upset by the doctors and "banished" them from her room. Problems Active Problems: Depressed mood Inactive Problems: Medication compliant Pt Strengths/Limitations Ability for [place]: Fair Cognitive Functioning/Ability: Fair Communication Skills/Ability: Good Financial Resources: Fair Insight/Judgement: Poor Intellectual Ability: Fair Physical Health: Poor Social Skills: Fair Stability in School/Work: Poor Verbal Skills: Good Discharge Criteria Discharge Criteria: No need for close observ., Adequate arrangements @DC, Adequate self-care, Improved behavior, Improved mood/thought Preliminary Discharge Plan Preliminary DC Plan: Other Other Arrangements: Family is considering placement at the time of discharge Special Precautions Fall Risk: Low Initial D/C Plan Family is concerned pt is not safe at home and may need placement versus returning home. Identified Discharge Needs: Potential referrals to placement versus community services through [facility] Currently Utilized Resources Currently Utilized Resources/P: Primary Care Physician Identified Problems/Hx/Goals Objectives/Short-Term Goals Short Term Goals: Dec. Symp. Depression, Medication Stabilization, Promote Coping Skill Short Term Goals in Patient's: I don't need to be here. I need to go home because this place makes me more depressed. Interventions/Frequency Staff Interventions/Frequency&: Psychiatrist to assess pt at least 3x per week for medication mgmt. Social Work to assess pt at least 2x per week for indentification of barriers to care and discharge planning. Nursing to assess medication effects, behavioral management and completion of 15 minute checks daily. Encourage participation in group activities (if applicable) or 1:1 engagement based off Activity Dept goal. 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 Education: Pt graduated 12th grade Community Follow-up Primary Care Physician Community Provider/Family Inpu: Pt family believe that pt has beginning stages of Dementia. Pt presents well but is not able to retain information. Treatment Plan Explained Patient/Experience Design Director had this treatment plan explained to him/her as indicated by the signature below and has been given the opportunity to ask questions and make suggestions: Date: Patient/Experience Design Director Signature: Status Update Update Pt is eating 75% of meals and sleeping on average 7 hours per night. Pt continues to be calm and compliant with all staff direction. Pt is medication compliant and attends all groups with moderate to full participation. Pt had psychological testing and will plan to return home with extra supports on board. Pt will need a psychiatrist, protective services social worker and referral to Medicare for home- maker services. Pt is currently on Zoloft 100mg daily, Gabapentin 300mg at HS and Remeron 7.5mg q HS. SW will make discharge arrangements for either Sunday or Sunday as pt dtr is planning to check with her brother and their work schedules. SHAN VENTURA Oct 28, 2020 13:53
[2020-10-28 15:57] VITALS: BP 121/83
[2020-10-28] MEDS: GABAPENTIN 300 MG CAPSULE. PO SCH (19:43)
[2020-10-28] MEDS: ACETAMINOPHEN 325 MG TABLET PO PRN (19:43)
[2020-10-28] MEDS: TEMAZEPAM 7.5 MG CAPSULE PO SCH (19:43)
--- NOTE | 2020-10-28 21:21 | PDOC ---
Exam Note: Karl Note: Please also refer to the separate dictated note~for this date of service dictated separately.~Patient seen individually. Discussed the patient with Nursing staff reviewed the chart.~Reviewed interim history and current functioning. Reviewed vital signs,~Labs/ Radiology~and current medications noted below. Continue current treatment with the changes noted in the dictated addendum note Assessment: Vital Signs/I&O: Vital Signs Date Time Temp Pulse Resp B/P (MAP) Pulse Ox O2 Delivery O2 Flow Rate FiO2 10/28/20 15:57 97.7 75 20 121/83 (96) 98 Room Air I & O 10/27/20 10/27/20 10/28/20 15:00 23:00 07:00 Intake Total 600 ml 480 ml Balance 600 ml 480 ml Current Medications: Meds: Current Medications Medications (Trade) Dose Ordered Sig/Estefany Route PRN Reason Start Time Stop Time Status Last Admin Dose Admin Acetaminophen (Tylenol) 650 mg PRN Q6HRS PRN PO MILD PAIN / TEMP > 100.3'F 10/13/20 17:45 10/28/20 19:43 Multi-Ingredient Ointment (Analgesic [place]) 1 lili PRN QID PRN TP MUSCLE PAIN 10/13/20 17:45 Al Hydroxide/Mg Hydroxide (Mylanta Plus Xs) 15 ml PRN AFTMEALHC PRN PO DYSPEPSIA 10/13/20 17:45 Magnesium Hydroxide (Milk Of Magnesia) 2,400 mg PRN QHS PRN PO CONSTIPATION 10/13/20 17:45 Acetaminophen (Tylenol) 650 mg PRN Q6HRS PRN PO pain or fever 10/13/20 18:00 UNV Aspirin (Aspirin Chewable) 81 mg DAILY PO 10/14/20 09:00 10/28/20 08:26 Furosemide (Lasix) 40 mg DAILY PO 10/14/20 09:00 10/28/20 08:26 Gabapentin (Neurontin) 300 mg HS PO 10/13/20 21:00 10/28/20 19:43 Metoprolol Succinate (Toprol Xl) 75 mg DAILY PO 10/14/20 09:00 10/28/20 08:26 Ondansetron HCl (Zofran Odt) 4 mg PRN Q6HRS PRN PO NAUSEA/VOMITING 10/13/20 18:00 Pantoprazole Sodium (Protonix) 40 mg BID PO 10/13/20 21:00 10/28/20 19:43 Potassium Chloride (Klor-Con) 20 meq DAILY PO 10/14/20 09:00 10/28/20 08:26 Sertraline HCl (Zoloft) 50 mg DAILY PO 10/14/20 09:00 10/14/20 10:47 DC 10/14/20 08:14 Sucralfate (Carafate) 1 gm TIDBFRMEAL PO 10/14/20 07:30 10/28/20 17:21 Temazepam (Restoril) 7.5 mg QHS PO 10/13/20 21:00 10/28/20 19:43 Atorvastatin Calcium (Lipitor) 40 mg DAILY PO 10/14/20 09:00 10/28/20 08:25 Sertraline HCl (Zoloft) 75 mg DAILY PO 10/15/20 09:00 10/21/20 11:39 DC 10/21/20 08:27 Sertraline HCl (Zoloft) 100 mg DAILY PO 10/22/20 09:00 10/28/20 08:25 Hydrocortisone (Cortaid) 1 lili BID TP 10/23/20 21:00 10/28/20 19:43 Cetirizine HCl (ZyrTEC) 10 mg DAILY PO 10/24/20 09:00 10/28/20 08:26 I have reviewed the current psychotropics carefully including drug interactions. Risk benefit ratio favors no change other than as noted in my dictated progress note. Diagnosis: Problems: (1) Major depressive disorder, recurrent episode (2) Impulse control disorder, unspecified (3) Anxiety disorder, unspecified SAYRA SALGADO MD Oct 28, 2020 21:21
[2020-10-29] MEDS ORDERED: CETI10TA16 PO (03:40)
[2020-10-29] MEDS ORDERED: METH57CR17 TP (03:41)
[2020-10-29] MEDS ORDERED: MAG-124 PO (03:44)
[2020-10-29] MEDS ORDERED: MAGN24003 PO (03:45)
[2020-10-29] MEDS ORDERED: HYDR453. TP (03:47)
[2020-10-29] MEDS ORDERED: HYDR42CR2 TP (03:47)
[2020-10-29 05:50] VITALS: BP 145/84
[2020-10-29] MEDS: ASPIRIN CHEWABLE 81 MG TABLET. PO SCH (08:00)
[2020-10-29] MEDS: SERTRALINE 50 MG TABLET. PO SCH (08:01)
[2020-10-29 08:03] VITALS: BP 145/84
[2020-10-29] MEDS: SUCRALFATE 1 GM TABLET. PO SCH ×2 (08:03→11:59)
[2020-10-29] MEDS: PANTOPRAZOLE 40 MG TABLET. PO SCH (08:03)
[2020-10-29] MEDS: METOPROLOL SUCC 24HR ER 25 MG TAB.ER.24H. PO SCH (08:03)
[2020-10-29] MEDS: ATORVASTATIN CALCIUM 20 MG TABLET PO SCH (08:04)
[2020-10-29] MEDS: CETIRIZINE HCL 10 MG TABLET PO SCH (08:04)
[2020-10-29] MEDS: FUROSEMIDE 40 MG TABLET PO SCH (08:04)
[2020-10-29] MEDS: POTASSIUM CHLORIDE 20 MEQ TABLET.ER. PO SCH (08:05)
[2020-10-29] MEDS: HYDROCORTISONE 1% TOPICAL CREAM 30GM TUBE. TP SCH (08:54)
--- NOTE | 2020-10-29 09:06 | PDOC ---
Exam Note: Karl Note: This note is a late entry for 10/28/2020 covers elements not covered in my initial note. Subjective: The patient was reviewed in the morning of 10/28/2020 for a treatment team meeting with America Arora, Larissa Solo and Lolly (social sciences professor), Cici, activity therapy and Celeste BALLARD, discussed and reviewed the chart. The patient slept 6 hours previous night. Appetite is 75%. She is compliant with medications. She is pleasant, spending time in the dayroom, very excited about discharge home tomorrow on 10/29. I met with her at length in her room in the evening. She will be having visiting nurse and social service interventions at home and follow-up for neuropsychological testing post discharge. I also reviewed neuropsychological testing completed by Dr. Hancock. Her daughter will be doing her finances and family are pursuing Medicaid and area director of home health sales services twice a week. She is very excited about discharge as I met with her in the evening, very appropriate, pleasant, smiling. Review of Systems: No CV, , pulmonary, eye, ENT system symptoms on review. Mental Status Exam: The patient is oriented to herself and situation. Speech is coherent, rapid at times. Abstraction is fair. Computation is impaired. Language function is intact. Attention span is short. Mood and affect lability is improved. Laboratory Data: Reviewed. 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 Anxiety disorder unspecified. Impulse control disorder unspecified. Plan: Continue current psychotropics. I discussed at length about discharge plans and after care plans with her in the evening. Assessment: Vital Signs/I&O: Vital Signs Date Time Temp Pulse Resp B/P (MAP) Pulse Ox O2 Delivery O2 Flow Rate FiO2 10/29/20 08:03 59 145/84 10/29/20 05:50 97.7 16 97 10/28/20 15:57 Room Air I & O 10/28/20 10/28/20 10/29/20 14:59 22:59 06:59 Intake Total 720 ml 360 ml Balance 720 ml 360 ml Current Medications: Meds: Current Medications Medications (Trade) Dose Ordered Sig/Estefany Route PRN Reason Start Time Stop Time Status Last Admin Dose Admin Acetaminophen (Tylenol) 650 mg PRN Q6HRS PRN PO MILD PAIN / TEMP > 100.3'F 10/13/20 17:45 10/28/20 19:43 Multi-Ingredient Ointment (Analgesic [place]) 1 lili PRN QID PRN TP MUSCLE PAIN 10/13/20 17:45 Al Hydroxide/Mg Hydroxide (Mylanta Plus Xs) 15 ml PRN AFTMEALHC PRN PO DYSPEPSIA 10/13/20 17:45 Magnesium Hydroxide (Milk Of Magnesia) 2,400 mg PRN QHS PRN PO CONSTIPATION 10/13/20 17:45 Acetaminophen (Tylenol) 650 mg PRN Q6HRS PRN PO pain or fever 10/13/20 18:00 UNV Aspirin (Aspirin Chewable) 81 mg DAILY PO 10/14/20 09:00 10/29/20 08:00 Furosemide (Lasix) 40 mg DAILY PO 10/14/20 09:00 10/29/20 08:04 Gabapentin (Neurontin) 300 mg HS PO 10/13/20 21:00 10/28/20 19:43 Metoprolol Succinate (Toprol Xl) 75 mg DAILY PO 10/14/20 09:00 10/29/20 08:03 Ondansetron HCl (Zofran Odt) 4 mg PRN Q6HRS PRN PO NAUSEA/VOMITING 10/13/20 18:00 Pantoprazole Sodium (Protonix) 40 mg BID PO 10/13/20 21:00 10/29/20 08:03 Potassium Chloride (Klor-Con) 20 meq DAILY PO 10/14/20 09:00 10/29/20 08:05 Sertraline HCl (Zoloft) 50 mg DAILY PO 10/14/20 09:00 10/14/20 10:47 DC 10/14/20 08:14 Sucralfate (Carafate) 1 gm TIDBFRMEAL PO 10/14/20 07:30 10/29/20 08:03 Temazepam (Restoril) 7.5 mg QHS PO 10/13/20 21:00 10/28/20 19:43 Atorvastatin Calcium (Lipitor) 40 mg DAILY PO 10/14/20 09:00 10/29/20 08:04 Sertraline HCl (Zoloft) 75 mg DAILY PO 10/15/20 09:00 10/21/20 11:39 DC 10/21/20 08:27 Sertraline HCl (Zoloft) 100 mg DAILY PO 10/22/20 09:00 10/29/20 08:01 Hydrocortisone (Cortaid) 1 lili BID TP 10/23/20 21:00 10/29/20 08:54 Cetirizine HCl (ZyrTEC) 10 mg DAILY PO 10/24/20 09:00 10/29/20 08:04 I have reviewed the current psychotropics carefully including drug interactions. Risk benefit ratio favors no change other than as noted in my dictated progress note. Diagnosis: Problems: (1) Major depressive disorder, recurrent episode (2) Impulse control disorder, unspecified (3) Anxiety disorder, unspecified SAYRA SALGADO MD Oct 29, 2020 09:06
--- NOTE | 2020-10-29 21:59 | DS ---
DATE OF DISCHARGE: 10/29/2020 DISCHARGE SUMMARY/PSYCHIATRIC PROGRESS NOTE This note covers elements not covered in my initial note of 10/29/2020. REASON FOR ADMISSION: Please refer to the admission history for details. Briefly, the patient is an 85-year-old female who presented from home, referred by primary care physician and family on account of worsening symptoms of depression and the patient threatened suicide by overdose on her medications after a disagreement with the family. She was upset with her physicians and refused to have them enter her room. She was agitated, paranoid, suspicious, behaviors were deemed dangerous due to her suicide statements and she was admitted for inpatient psychiatric stabilization. SIGNIFICANT FINDINGS AND CLINICAL COURSE: Following admission, the patient was seen daily individually by myself from a psychiatric standpoint, medical followup per Dr. Jamison/Dr. Obrien. The patient remained extremely anxious, agitated, labile in her mood, initially with some short-term memory deficits. She was quite depressed and agitated. Adjustments were made in her psychotropics and she seemed to respond to a combination of Zoloft 100 mg a day, Restoril 7.5 mg at bedtime p.r.n., gabapentin 300 mg at bedtime. Neuropsychological testing completed by Dr. Hancock from [facility] was reflective of her mood symptoms, some mild cognitive impairment, but the testing report indicated she would be appropriate to return home with close followup with the family and in-home services, all of which were coordinated by the social service staff. REVIEW OF SYSTEMS: Prior to discharge on 10/29/2020, no CV, , pulmonary, eye, ENT system symptoms on review. MENTAL STATUS EXAM: Oriented to herself and situation. Speech is coherent, abstraction fair, computation somewhat impaired, language function intact. Mood and affect is improved. LABORATORY DATA: Reviewed. No suicidal ideation at discharge. FINAL DIAGNOSES: Major depressive disorder, recurrent, in partial remission; mild cognitive impairment; anxiety disorder, unspecified. Rest unchanged from admission. DISCHARGE MEDICATIONS: Please refer to the MRAD. DISCHARGE INSTRUCTIONS: Outpatient psychiatric and medical followup as arranged prior to discharge. Time for discharge day management greater than 30 minutes. MAN Emily SALGADO MD DR: AMISHA/eliseo JOB#: [id number] / [id number]
--- NOTE | 2020-10-29 22:14 | PDOC ---
Exam Note: Karl Note: Please also refer to the separate dictated note~for this date of service dictated separately.~Patient seen individually. Discussed the patient with Nursing staff reviewed the chart.~Reviewed interim history and current functioning. Reviewed vital signs,~Labs/ Radiology~and current medications noted below. Continue current treatment with the changes noted in the dictated addendum note Assessment: Vital Signs/I&O: Vital Signs Date Time Temp Pulse Resp B/P (MAP) Pulse Ox O2 Delivery O2 Flow Rate FiO2 10/29/20 08:03 59 145/84 10/29/20 05:50 97.7 16 97 10/28/20 15:57 Room Air I & O 10/28/20 10/28/20 10/29/20 15:00 23:00 07:00 Intake Total 720 ml 360 ml Balance 720 ml 360 ml Current Medications: Meds: Current Medications Medications (Trade) Dose Ordered Sig/Estefany Route PRN Reason Start Time Stop Time Status Last Admin Dose Admin Acetaminophen (Tylenol) 650 mg PRN Q6HRS PRN PO MILD PAIN / TEMP > 100.3'F 10/13/20 17:45 10/29/20 15:42 DC 10/28/20 19:43 Multi-Ingredient Ointment (Analgesic [place]) 1 lili PRN QID PRN TP MUSCLE PAIN 10/13/20 17:45 10/29/20 15:42 DC Al Hydroxide/Mg Hydroxide (Mylanta Plus Xs) 15 ml PRN AFTMEALHC PRN PO DYSPEPSIA 10/13/20 17:45 10/29/20 15:42 DC Magnesium Hydroxide (Milk Of Magnesia) 2,400 mg PRN QHS PRN PO CONSTIPATION 10/13/20 17:45 10/29/20 15:42 DC Acetaminophen (Tylenol) 650 mg PRN Q6HRS PRN PO pain or fever 10/13/20 18:00 UNV Aspirin (Aspirin Chewable) 81 mg DAILY PO 10/14/20 09:00 10/29/20 15:42 DC 10/29/20 08:00 Furosemide (Lasix) 40 mg DAILY PO 10/14/20 09:00 10/29/20 15:42 DC 10/29/20 08:04 Gabapentin (Neurontin) 300 mg HS PO 10/13/20 21:00 10/29/20 15:42 DC 10/28/20 19:43 Metoprolol Succinate (Toprol Xl) 75 mg DAILY PO 10/14/20 09:00 10/29/20 15:42 DC 10/29/20 08:03 Ondansetron HCl (Zofran Odt) 4 mg PRN Q6HRS PRN PO NAUSEA/VOMITING 10/13/20 18:00 10/29/20 15:42 DC Pantoprazole Sodium (Protonix) 40 mg BID PO 10/13/20 21:00 10/29/20 15:42 DC 10/29/20 08:03 Potassium Chloride (Klor-Con) 20 meq DAILY PO 10/14/20 09:00 10/29/20 15:42 DC 10/29/20 08:05 Sertraline HCl (Zoloft) 50 mg DAILY PO 10/14/20 09:00 10/14/20 10:47 DC 10/14/20 08:14 Sucralfate (Carafate) 1 gm TIDBFRMEAL PO 10/14/20 07:30 10/29/20 15:42 DC 10/29/20 11:59 Temazepam (Restoril) 7.5 mg QHS PO 10/13/20 21:00 10/29/20 15:42 DC 10/28/20 19:43 Atorvastatin Calcium (Lipitor) 40 mg DAILY PO 10/14/20 09:00 10/29/20 15:42 DC 10/29/20 08:04 Sertraline HCl (Zoloft) 75 mg DAILY PO 10/15/20 09:00 10/21/20 11:39 DC 10/21/20 08:27 Sertraline HCl (Zoloft) 100 mg DAILY PO 10/22/20 09:00 10/29/20 15:42 DC 10/29/20 08:01 Hydrocortisone (Cortaid) 1 lili BID TP 10/23/20 21:00 10/29/20 15:42 DC 10/29/20 08:54 Cetirizine HCl (ZyrTEC) 10 mg DAILY PO 10/24/20 09:00 10/29/20 15:42 DC 10/29/20 08:04 I have reviewed the current psychotropics carefully including drug interactions. Risk benefit ratio favors no change other than as noted in my dictated progress note. Diagnosis: Problems: (1) Major depressive disorder in partial remission (2) Mild cognitive impairment (3) Impulse control disorder, unspecified (4) Anxiety disorder, unspecified SAYRA SALGADO MD Oct 29, 2020 22:14
== END 2020-10-29 15:41 | disposition home health service (06) | DRG 885 ==
LOC: GEROPSY 15:30
PROVIDERS: ADMIT Psychiatry & Neurology Psychiatry; ATTEND Psychiatry & Neurology Psychiatry
DX: F33.3 Major depressive disorder, recurrent, severe with psychotic symptoms (principal); N18.9 Chronic kidney disease, unspecified; N17.9 Acute kidney failure, unspecified; I13.0 Hypertensive heart and chronic kidney disease with heart failure and stage 1 through stage 4 chronic kidney disease, or unspecified chronic kidney disease; I48.20 Chronic atrial fibrillation, unspecified; E78.5 Hyperlipidemia, unspecified; F41.9 Anxiety disorder, unspecified; F60.9 Personality disorder, unspecified; F63.9 Impulse disorder, unspecified; G31.84 Mild cognitive impairment of uncertain or unknown etiology; I25.10 Atherosclerotic heart disease of native coronary artery without angina pectoris; I50.9 Heart failure, unspecified; J44.9 Chronic obstructive pulmonary disease, unspecified; Z79.899 Other long term (current) drug therapy; G89.29 Other chronic pain; K57.90 Diverticulosis of intestine, part unspecified, without perforation or abscess without bleeding; Z20.822 Contact with and (suspected) exposure to COVID-19
CPT/HCPCS: 36415; 80053; 83540; 83550; 83735; 84436; 84480; 85025; 93005; U0003; 97530; 97535